=== PATIENT | male | born 1980 | race African-American/Black ===

== ENCOUNTER 2017-03-19 07:53 | Inpatient (IN) ==
[2017-03-19 08:29] LABS: MANUAL DIFF NEEDED? NO
[2017-03-19 08:33] LABS: BASO% 0.1 % (0.0-0.8); EOS# 0.04 X1000 (0.0-0.7); EOS% 0.4 % (0.0-10.0); HEMATOCRIT 42.5 % (42.0-52.0); HEMOGLOBIN 14.9 g/dL (14.0-18.0); IMM GRAN# 0.02 X1000 (0.0-0.04); IMM GRAN% 0.2 % (0.0-0.5); LYMPH# 1.22 X1000 (1.2-3.4); LYMPH% 13.3 % (20.5-51.1); MCHC 35.1 g/dL (33-37); MCV 88.5 FL (81-99); MONO# 0.69 X1000 (0.11-0.59); MONO% 7.5 % (1.7-9.3); MPV 10.5 FL (7.4-10.4); NEUT% 78.5 % (42.2-75.2); PLT 174 X1000 (130-400)
[2017-03-19 09:16] LABS: ALBUMIN 4.5 g/dL (3.5-5.0); CALCIUM 9.8 mg/dL (8.8-10.2); POTASSIUM 3.4 mmol/L (3.5-5.1); TOTAL BILIRUBIN 0.79 mg/dL (0.20-1.00); TOTAL PROTEIN 7.5 g/dL (6.3-8.3)
[2017-03-19 09:23] LABS: ALLEN TEST YES; BE 7.3 mmoll (-3.0-3.0); BLOOD TYPE ARTERIAL; DRAW SITE R RADIAL; METHB 0.9 % (0.0-1.5); O2(CT) 19.4 mL/dL (15.0-23.0); PCO2(98.6) 34 mmHg (35-45); PO2(98.6) 113 mmHg (60-100); SAMPLE BLOOD; SAO2 99.7 % (95.0-100.0); THB 15.2 g/dL (11.5-17.4); pH(98.6) 7.55 (7.35-7.45)
[2017-03-19 09:26] LABS: MODALITY ROOM AIR
[2017-03-19] MEDS ORDERED: ZOFRAN IV PRN (12:24)
[2017-03-19 12:39] LABS: AMYLASE 120 U/L (20-200); LIPASE 16 U/L (13-60)
[2017-03-19 14:03] LABS: URINE CULTURE NEEDED? NO; URINE MICRO REVIEW NEEDED? NO; URINE SOURCE CLEAN CATCH
[2017-03-19 14:07] LABS: BILIRUBIN URINE NEGATIVE (NEGATIVE); BLOOD URINE TRACE (NEGATIVE); COLOR YELLOW; GLUCOSE URINE NEGATIVE (NEGATIVE); LEUKOCYTES URINE NEGATIVE (NEGATIVE); NITRITE URINE NEGATIVE (NEGATIVE); PROTEIN URINE TRACE mg/dL (NEGATIVE); SP GRAVITY URINE 1.022; TURBIDITY URINE CLEAR (CLEAR); UROBILINOGEN URINE NORMAL (NORMAL)
[2017-03-19 14:11] LABS: UR EPITHELIAL CELLS <10 /HPF (<10); URINE BACTERIA NEGATIVE /HPF; URINE RBC <10 /HPF (<10); URINE WBC <10 /HPF (<10)
[2017-03-19] MEDS: NS 1,000 ML IV SCH ×2 (14:11→22:09)
[2017-03-19 14:19] LABS: UR AMPHETAMINES QUAL NONE DETECTED (NONE DETECT); UR BARBITUATES QUAL NONE DETECTED (NONE DETECT); UR BENZODIAZEPIN QUAL NONE DETECTED (NONE DETECT); UR CANNABINOIDS QUAL NONE DETECTED (NONE DETECT); UR COCAINE QUAL NONE DETECTED (NONE DETECT); UR CREAT RANDOM 188.8 mg/dL (14-26); UR METHADONE QUAL NONE DETECTED (NONE DETECT); UR OPIATES QUAL NONE DETECTED (NONE DETECT); UR OXYCODONE QUAL NONE DETECTED (NONE DETECT); UR PCP QUAL NONE DETECTED (NONE DETECT)
[2017-03-19 15:58] LABS: AGAP 10; ALBUMIN 4.5 g/dL (3.5-5.0); ALKALINE PHOSPHATASE 61 U/L (32-122); BUN 35 mg/dL (8-22); CHLORIDE 88 mmol/L (98-107); COSMO 273; GOT 23 U/L (10-34); GPT 16 U/L (10-44); POTASSIUM 3.4 mmol/L (3.5-5.1); SODIUM 131 mmol/L (136-145); TCO2 33 mmol/L (25-35); TOTAL BILIRUBIN 1.02 mg/dL (0.20-1.00); TOTAL PROTEIN 7.8 g/dL (6.3-8.3)
[2017-03-20 06:08] LABS: MANUAL DIFF NEEDED? NO
[2017-03-20 06:16] LABS: BASO% 0.2 % (0.0-0.8); EOS# 0.06 X1000 (0.0-0.7); EOS% 0.7 % (0.0-10.0); HEMATOCRIT 41.6 % (42.0-52.0); HEMOGLOBIN 14.1 g/dL (14.0-18.0); LYMPH# 2.63 X1000 (1.2-3.4); LYMPH% 32.2 % (20.5-51.1); MCH 30.7 PG (27-31); MCHC 33.9 g/dL (33-37); MCV 90.6 FL (81-99); MONO# 1.05 X1000 (0.11-0.59); MONO% 12.9 % (1.7-9.3); PLT 166 X1000 (130-400); RBC 4.59 XMIL (4.7-6.1)
[2017-03-20] MEDS: NS 1,000 ML IV SCH (07:17)
[2017-03-20 12:46] VITALS: BP 133/78
[2017-03-20] MEDS ORDERED: VENTOLIN HFA INH PRN (12:49)
[2017-03-21] MEDS ORDERED: PRILOSEC PO SCH (07:00)
== END 2017-03-20 14:31 | disposition home or self-care (01) ==
LOC: ED 07:53 → SUATTDRO 11:40 → 4N 11:40
PROVIDERS: ATTEND Internal Medicine

== ENCOUNTER 2018-07-28 06:30 | Inpatient (IN) ==
--- NOTE | 2018-07-28 07:46 | PROVIDER DOCUMENTATION ---
HPI-General Adult - General Chief Complaint: General Adult Stated Complaint: Headache and Chest pain Time Seen by Provider: 07/28/18 07:41 Source: patient Allergies/Adverse Reactions: Patient Allergies Allergy/AdvReac Type Severity Reaction Status Date / Time No Known Allergies Allergy Verified 12/13/17 20:29 Home Medications: Home Medication List Medication Instructions Recorded Confirmed Last Taken Type Lisinopril 5 mg PO QAM 12/17/15 12/13/17 12/12/17 History Metformin [Glucophage] 500 mg PO QAM 12/17/15 12/13/17 12/12/17 History SIMVAstatin [Zocor] 10 mg PO QHS 12/17/15 12/13/17 12/12/17 History Albuterol Sulfate Inhaler 2 puff INH Q6H PRN PRN #1 inhaler 03/20/17 12/13/17 Rx [Ventolin Hfa] Escitalopram Oxalate 1 tab PO DAILY 12/13/17 12/13/17 12/12/17 History Potassium Chloride E.r. [Klor-Con] 10 meq PO TID #30 tab 12/14/17 Unknown Rx Ondansetron Odt [Zofran 4 mg Odt] 4 mg PO Q6H PRN PRN 7 Days #20 tab 07/25/18 Unknown Rx - History of Present Illness -Gen Adult Nature of Presenting Problems: poor historian just sick wants food not eating 4 days complains of hunger and hx hbp lipids t2dm Location of Pain/Injury: reports: generalized Pain Radiation: reports: no radiation Quality of Pain: reports: aching Severity: reports: mild Onset/Duration: reports: unsure Timing: reports: still present Context/Activities at Onset: reports: none Modifying Factors: improves with: eating Associated Symptoms: reports: diarrhea, fatigue, muscle aches, nausea Similar Symptoms Previously?: No Recently seen or treated by another doctor?: No Review of Systems - Adult - REVIEW OF SYSTEMS - ADULT Constitutional: denies: night sweats, weight gain, weight loss Eyes: reports: no symptoms reported Ears, Nose, Mouth & Throat: reports: no symptoms reported Cardiovascular: reports: chest pain. denies: orthopnea, palpitations, syncope Respiratory: reports: cough. denies: hemoptysis, shortness of breath, wheezing Gastrointestinal: reports: diarrhea, nausea, vomiting Genitourinary: reports: no symptoms reported Musculoskeletal: reports: no symptoms reported Integumentary: reports: itching Neurological: reports: no symptoms reported Psychiatric: reports: depression Endocrine: reports: increased hunger, increased thirst. denies: polyuria Hematologic/Lymphatic: reports: no symptoms reported Allergic/Immunologic: reports: no symptoms reported Past History - Adult - PAST MEDICAL HISTORY-ADULT Review of Records: reports: Nursing Assessment Review, Medications Reviewed, Social history reviewed & non-contributory. Major Childhood Illnesses: reports: denies history Cardiovascular: reports: HTN, hyperlipidemia Respiratory: reports: asthma Gastrointestinal: reports: denies history Obstetrical/Gynecological: reports: denies history Genitourinary: reports: denies history Musculoskeletal: reports: denies history Neurological: reports: denies history Psychiatric: reports: anxiety Endocrine/Immune: reports: Diabetes Other Conditions: reports: denies history - PRIOR SURGERIES/PROCEDURES Surgical/Procedure History: reports: colonoscopy - IMMUNIZATION STATUS Childhood Immunizations: See Nurse Assessment Flu Vaccine: See Nurse Assessment - FAMILY HISTORY Family History: reviewed, not pertinent Physical Exam-General - PHYSICAL EXAM-ADULT Initial Vital Signs Reviewed: Yes - CONSTITUTIONAL General Appearance: alert, no apparent distress - EYES Eyes: PERRL/EOMI, pink conjunctivae - HEAD, EARS, NOSE, MOUTH & THROAT HENMT: normocephalic/atraumatic, moist mucous membranes, normal ENT inspection, TMs normal, pharynx normal - NECK Neck: non-tender, full range of motion, supple - RESPIRATORY Respiratory: chest non-tender, lungs clear, normal breath sounds - CARDIOVASCULAR Cardiovascular: normal peripheral pulses, regular rate, rhythm, no edema - GASTROINTESTINAL (ABDOMEN) Abdominal Exam: normal bowel sounds, non tender, soft - LYMPHATIC Lymphatic: no adenopathy - MUSCULOSKELETAL Back Exam: normal inspection Extremity: normal range of motion, non-tender, normal gait - SKIN Integumentary: normal color, normal turgor - NEUROLOGIC Neurologic: passport support associate II-XII nml as tested, grossly normal Progress - PLAN OF CARE/RESULTS Progress/Plan/Lab Results: Vital Signs - 8 hr 07/28/18 06:30 Temperature 97.7 F Pulse Rate 73 Respiratory Rate 12 Blood Pressure 100/68 O2 Sat by Pulse Oximetry 100 Orders Category Date Time Status CBC WITH DIFF [HEME] Stat Lab 07/28/18 07:14 Ordered CMP [COMPREHENSIVE METABOLIC PANEL] [CHEM] Stat Lab 07/28/18 07:14 Uncollected ua [URINALYSIS PL W/POSS RFLX CULT] [URINALYSIS] Stat Lab 07/28/18 07:15 Uncollected Result Diagrams: 07/28/18 09:50 07/28/18 09:50 Departure - Departure Date of Disposition Decision: 07/28/18 Time of Disposition Decision: 11:04 DIAGNOSIS: Hyponatremia, Hypokalemia, Azotemia Disposition: ADMITTED INPATIENT 09 Certified Medical Emergency: Emergent Condition: Stable - Critical Care Note This patient required my direct & personal management of CC.: No Attestation - Physician/ SOFIA Attestation Patient care was provided by Advanced Practice Provider:: No The physician spent face to face time with patient:: Yes Advanced Practice Provider documentation review:: Supervising physician onsite and consulted in the evaluation and care of this patient. The physician did have a face to face encounter with the patient.
[2018-07-28 08:18] LABS: BILIRUBIN URINE NEGATIVE (NEGATIVE); BLOOD URINE 2+ (NEGATIVE); CLARITY CLEAR (CLEAR); COLOR YELLOW; KETONE URINE TRACE mg/dL (NEGATIVE); LEUKOCYTES URINE NEGATIVE (NEGATIVE); NITRITE URINE NEGATIVE (NEGATIVE); PROTEIN URINE 1+(30 mg/dL) mg/dL (NEGATIVE); SP GRAVITY URINE 1.015; UROBILINOGEN URINE NORMAL
[2018-07-28 08:30] LABS: URINE CAST GRANULAR PRESENT /LPF
[2018-07-28 08:31] LABS: URINE BACTERIA 1+ /HFP; URINE EPITHELIAL CELLS <10 /HPF (<10); URINE RBC <10 /HPF (<10); URINE SMALL ROUND CELLS TRANSITIONAL PRESENT
[2018-07-28 08:32] LABS: URINE SOURCE CLEAN CATCH
[2018-07-28 08:40] LABS: UR AMPHETAMINES QUAL NONE DETECTED (NONE DETECT); UR BARBITUATES QUAL NONE DETECTED (NONE DETECT); UR BENZODIAZEPIN QUAL NONE DETECTED (NONE DETECT); UR CANNABINOIDS QUAL NONE DETECTED (NONE DETECT); UR COCAINE QUAL NONE DETECTED (NONE DETECT); UR METHADONE QUAL NONE DETECTED (NONE DETECT); UR METHAMPHETAMINE QUAL NONE DETECTED (NONE DETECT); UR OPIATES QUAL NONE DETECTED (NONE DETECT); UR OXYCODONE QUAL NONE DETECTED (NONE DETECT); UR PCP QUAL NONE DETECTED (NONE DETECT); UR PROPOXYPHENE QUAL NONE DETECTED (NONE DETECT); UR TCA QUAL NONE DETECTED (NONE DETECT)
[2018-07-28 10:05] LABS: BASO# 0.01 X1000 (0.0-0.2); BASO% 0.1 % (0.0-0.8); EOS# 0.05 X1000 (0.0-0.7); EOS% 0.4 % (0.0-10.0); HEMATOCRIT 43.4 % (42.0-52.0); HEMOGLOBIN 15.9 g/dL (14.0-18.0); IMM GRAN# 0.03 X1000 (0.0-0.04); IMM GRAN% 0.2 % (0.0-0.5); LYMPH# 0.99 X1000 (1.2-3.4); LYMPH% 8.1 % (20.5-51.1); MCH 30.7 PG (27-31); MCHC 36.6 g/dL (33-37); MCV 83.8 FL (81-99); NEUT# 9.39 X1000 (1.4-6.5); NEUT% 77.2 % (42.2-75.2); PLT 221 X1000 (130-400); RBC 5.18 XMIL (4.7-6.1); RDW 11.7 % (11.5-14.5); WBC 12.17 X1000 (4.8-10.8)
[2018-07-28 10:36] LABS: ALBUMIN 3.8 g/dL (3.5-5.0); CALCIUM 9.7 mg/dL (8.8-10.2); CREATININE 4.2 mg/dL (0.7-1.2); TOTAL BILIRUBIN 1.9 mg/dL (0.20-1.00); TOTAL PROTEIN 6.9 g/dL (6.3-8.3)
[2018-07-28 10:53] LABS: POTASSIUM 2.5 mmol/L (3.5-5.1)
--- NOTE | 2018-07-28 10:55 | Diag Imaging Result Doc PS360 ---
EXAM: CHEST-2 VIEWS - 07/28/2018 HISTORY: cough TECHNIQUE: Chest two views COMPARISON: 03/19/2017 FINDINGS: Heart size is normal. Lungs appear essentially clear. There is no pleural effusion or pneumothorax identified. There is possibly a small amount of pneumomediastinum superiorly to the left. There is possibly some subcutaneous air at the base of the left neck. IMPRESSION: No evidence of pneumonia. Possible small amount of pneumomediastinum superiorly to the left. Possible subcutaneous air at base of neck on the left. No evidence of pneumothorax. Electronically signed by Ron Choe 07/28/2018 10:53 AM
[2018-07-28] MEDS ORDERED: ZOFRAN IV PRN (11:28)
[2018-07-28 11:30] LABS: CK INDEX 0.4 (0.0-2.5); CK-MB 12.34 ng/mL (0.0-5.0)
[2018-07-28] MEDS ORDERED: NS 1,000 ML IV SCH (11:30)
[2018-07-28] MEDS ORDERED: KLOR-CON PO ONE ×2 (11:33→16:56)
[2018-07-28] MEDS: PROTONIX IV SCH (12:02)
[2018-07-28] MEDS: SODIUM CHLORIDE 0.9% INJ SCH (12:02)
[2018-07-28] MEDS: HEPARIN SUBQ SCH ×2 (12:14→23:30)
--- NOTE | 2018-07-28 12:32 | ED EKG INTERP ---
This chart was entered by Lorene Mcgowan Scribe, acting as scribe for Reinaldo Guy MD. EKG Interpretation - EKG Time of EKG reading by physician:: 11:24 EKG Read and Signed by:: Reinaldo Guy EKG Interpretation (*Must complete 3 of following elements*): Abnormal Rate: 67 Rhythm: nsr [place]: right QRS: other (right atrial enlargement/pulmonary disease pattern) MI Interval: normal Comments: st and t wave abnormality, consider lateral ischemia/prolonged qt Attestation - Physician/ SOFIA Attestation Patient care was provided by Advanced Practice Provider:: No The physician spent face to face time with patient:: Yes Advanced Practice Provider documentation review:: Supervising physician onsite and consulted in the evaluation and care of this patient. The physician did have a face to face encounter with the patient. This chart was documented by the indicated scribe, (Lorene Mcgowan Scribe) and accurately reflects the services I performed and decisions made by me, Reinaldo Guy MD, as attested by the provider's signature.
[2018-07-28 12:38] LABS: CALCIUM 9.4 mg/dL (8.8-10.2); CREATININE 4.3 mg/dL (0.7-1.2); POTASSIUM 2.4 mmol/L (3.5-5.1)
--- NOTE | 2018-07-28 14:36 | HISTORY AND PHYSICAL ---
PRIMARY CARE PHYSICIAN: Dr. Stapleton. CHIEF COMPLAINT: " just sick. HISTORY OF PRESENTING ILLNESS: This is a 38-year-old male, who presents to [facility] ER, and is a very poor historian and stated that he was" just sick." Apparently for the past several days, has been lying around, not eating, had nausea, vomiting, but is now complaining of hunger and wants to eat but his workup that revealed a white blood cell count of 12.17. Sodium of 116, potassium 2.5, chloride 59, BUN of 73 with a creatinine of 4.2. In reviewing his previous creatinine, he has had a 4.4 in December of last year that only improved to 2.9 per our records, so it is unclear if he may have some underlying chronic kidney disease, but this is certainly an acute episode at this time. Total bilirubin of 1.90, AST of 101, ALT 57, creatine kinase of 2903, CK-MB of 12.37, with a negative troponin of 0.027. Urinalysis was negative except for 1+ bacteria. Urine drug screen showed none detected. Chest x- ray showed no evidence of pneumonia. So, he is going to be admitted to the intensive care unit for further evaluation and treatment. PAST MEDICAL HISTORY: Of hypertension hyperlipidemia and diabetes type 2. PAST SURGICAL HISTORY: None. FAMILY HISTORY: Both parents have high blood pressure and diabetes. SOCIAL HISTORY: Currently lives with his dad and is a 1 pack a day smoker and has been since he was 13 years old. Denies any alcohol or illicit drug use. ALLERGIES: He has no known drug allergies. HOME MEDICATIONS: We will need to obtain a current list and restart as appropriate. I will place an order for nursing to update and confirm home medications. LABORATORY/X-RAY DATA: Showed a white blood cell count of 12.17, hemoglobin 15.9, hematocrit 43.4, platelets 221,000. Sodium 116, potassium 2.5, chloride 59, CO2 44, BUN of 73, creatinine 4.2, glucose 115, total bilirubin of 1.90, AST of 101, ALT of 57 creatine kinase of 2903 with CK- MB of 12.34. Troponin was negative at 0.027. Urinalysis was negative, except for 1+ bacteria. Urine drug screen was negative. Chest x-ray showed no evidence of pneumonia. REVIEW OF SYSTEMS: Difficult to obtain from patient. The only thing I could get was nausea, vomiting, and fatigue. PHYSICAL EXAMINATION: On arrival he had a temperature of 97.7 degrees, pulse 73, respirations 12, blood pressure 100/68 saturating 100% on room air. GENERAL: This is a 38-year-old male, who is sitting up in the bed, answers questions, but not appropriately rambles quite frequently during the conversation and passed to be redirected back to the question and then still does not answer it clearly. HENT: Normocephalic, atraumatic. Normal ENT inspection. Oropharynx and nares are clear. EYES: Pupils are equal, round, reactive to light and accommodation. Extraocular movements are intact. NECK: Normal inspection, normal range of motion. LUNGS: Clear to auscultation bilaterally with equal lung expansion and chest wall movement. HEART: With regular rate and rhythm. No murmurs, rubs, or gallops. ABDOMEN: Soft, nontender, nondistended. Bowel sounds are present x4 quadrants. MUSCULOSKELETAL: He has 5/5 strength x4 extremities. NEUROLOGICAL: The cranial nerves 2-12 appear grossly intact. ASSESSMENT: 1. Hyponatremia. 2. Hypokalemia. 3. Acute kidney injury, possibly in the presence of chronic, but unknown at this time. 4. Rhabdomyolysis. 5. Elevated liver function tests. 6. Tobacco abuse. PLAN: He will be admitted to intensive care, placed on pattern blood sugars. Telemetry. Full liquid diet. We are going to check a urine sodium, urine osmolality, cortisols, TSH level and UA with reflex culture. We will do serial BMPs q. 2 hours. We will check a chest x-ray portable in the a.m. Place him on heparin 5000 units subcutaneously q. 12 hours for DVT prophylaxis. Place him on normal saline with 40 of potassium at 125 mL an hour, Protonix 40 mg IV 24. He received a 40 mEq p.o. x1 in the emergency room, and we will also recheck cardiac enzymes in the a.m. We will again update and confirm home medications per nursing and restart those as appropriate. This is for Reinaldo Morejon this is can be Vanesa COTA dictating for doctor status thank you. Dictated by BEATA Abad for Kyle Calabrese MD cc: BEATA Abad MD
[2018-07-28 14:42] LABS: CREATININE 4.2 mg/dL (0.7-1.2); POTASSIUM 3.1 mmol/L (3.5-5.1)
--- NOTE | 2018-07-28 14:43 | EKG Report ---
Test Performed on : 07/28/2018 11:24:05 AM Test Reason : pain Blood Pressure : / mmHG Vent. Rate : 067 BPM Atrial Rate : 067 BPM P-R Int : 152 ms QRS Dur : 100 ms QT Int : 522 ms P-R-T Axes : 081 098 091 degrees QTc Int : 551 ms Normal sinus rhythm. Right atrial enlargement Rightward axis Pulmonary disease pattern ST & T wave abnormality, consider lateral ischemia Prolonged QT Abnormal ECG No previous ECGs available Unconfirmed Result
[2018-07-28 15:10] LABS: BILIRUBIN URINE NEGATIVE (NEGATIVE); BLOOD URINE 1+ (NEGATIVE); CLARITY CLEAR (CLEAR); COLOR YELLOW; KETONE URINE NEGATIVE (NEGATIVE); SP GRAVITY URINE 1.015; URINE SOURCE CLEAN CATCH
[2018-07-28 15:11] LABS: LEUKOCYTES URINE NEGATIVE (NEGATIVE); NITRITE URINE NEGATIVE (NEGATIVE); PROTEIN URINE TRACE mg/dL (NEGATIVE); UROBILINOGEN URINE NORMAL
[2018-07-28 15:15] LABS: URINE WBC <10 /HPF (<10)
[2018-07-28 15:16] LABS: URINE EPITHELIAL CELLS <10 /HPF (<10); URINE RBC <10 /HPF (<10)
[2018-07-28 15:17] LABS: URINE BACTERIA 1+ /HFP; URINE YEAST NONE SEEN /HPF
[2018-07-28 16:55] LABS: CREATININE 3.8 mg/dL (0.7-1.2); POTASSIUM 2.8 mmol/L (3.5-5.1)
[2018-07-28 18:56] LABS: CALCIUM 9.1 mg/dL (8.8-10.2); CREATININE 3.6 mg/dL (0.7-1.2); POTASSIUM 3.3 mmol/L (3.5-5.1)
[2018-07-28] MEDS: NS + KCL 40 MEQ 1,000 ML IV SCH ×2 (19:43→19:48)
[2018-07-28] MEDS ORDERED: KLOR-CON ONE (19:46)
[2018-07-28] MEDS: HUMULIN R DOSE (PARKWAY) SUBQ SCH ×2 (19:46→23:26)
[2018-07-28 21:04] LABS: CALCIUM 8.7 mg/dL (8.8-10.2); CREATININE 3.6 mg/dL (0.7-1.2)
[2018-07-28 22:06] LABS: CALCIUM 8.9 mg/dL (8.8-10.2); CREATININE 3.3 mg/dL (0.7-1.2)
[2018-07-29 02:33] LABS: CALCIUM 9.1 mg/dL (8.8-10.2); CREATININE 3.1 mg/dL (0.7-1.2); POTASSIUM 3.5 mmol/L (3.5-5.1)
[2018-07-29 02:41] LABS: CALCIUM 8.9 mg/dL (8.8-10.2); CREATININE 2.9 mg/dL (0.7-1.2); POTASSIUM 3.6 mmol/L (3.5-5.1)
[2018-07-29] MEDS: NS + KCL 40 MEQ 1,000 ML IV SCH ×2 (03:50→11:54)
--- NOTE | 2018-07-29 04:29 | HISTORY AND PHYSICAL ---
ADDENDUM: The patient seen and examined by me [id number]. All the laboratories, vital signs and images was reviewed. The patient presented to the emergency department with severe weakness, also he was somehow disoriented, but he was answering some of my questions properly but he was really slow. He has severe weakness. As per the patient he was just sick. I do believe this patient has not been eating or drinking for a few days ago, but he does not remember that. His initial lab work showed a blood sodium of 116, and potassium level of 2.5. Also this patient is hypochloremic, he has some chronic kidney disease and yessy looks like his kidney function is around baseline, probably an acute on chronic kidney problem. CK level was elevated at 2803, and troponin was negative. He is not complaining of chest pain or shortness of breath. His urine osmolality was around 311, and his sodium level was less than 10 with some granular cast in the urine. On physical examination this patient was severely dehydrated. I have placed this patient on normal saline with potassium. The blood sodium had initially dropped to 113 and then it started going up again to 116, and now is 118, it is going up slowly. We will continue with the same management. The case has been discussed with the Nephrology Department, and a consult has been placed. They agree with the treatment. We will monitor this patient closely. I will also continue monitoring the CKD level on a daily basis, TSH, cortisol and hemoglobin A1c. At this moment this patient is alert and oriented x3 and he looks better. We will continue with the same management. cc: Kyle Calabrese MD
[2018-07-29 05:12] LABS: BASO# 0.01 X1000 (0.0-0.2); BASO% 0.2 % (0.0-0.8); EOS% 1.5 % (0.0-10.0); HEMATOCRIT 39.9 % (42.0-52.0); HEMOGLOBIN 14.1 g/dL (14.0-18.0); IMM GRAN# 0.02 X1000 (0.0-0.04); IMM GRAN% 0.3 % (0.0-0.5); LYMPH# 1.59 X1000 (1.2-3.4); LYMPH% 23.9 % (20.5-51.1); MCH 30.6 PG (27-31); MCHC 35.3 g/dL (33-37); MCV 86.6 FL (81-99); MONO# 1.13 X1000 (0.11-0.59); MPV 9.8 FL (7.4-10.4); NEUT# 3.79 X1000 (1.4-6.5); NEUT% 57.1 % (42.2-75.2); PLT 191 X1000 (130-400); RBC 4.61 XMIL (4.7-6.1); RDW 12.3 % (11.5-14.5); WBC 6.64 X1000 (4.8-10.8)
[2018-07-29 05:32] LABS: CALCIUM 8.9 mg/dL (8.8-10.2); CREATININE 2.7 mg/dL (0.7-1.2); POTASSIUM 3.6 mmol/L (3.5-5.1)
[2018-07-29 05:36] LABS: HEMOGLOBIN A1C 5.8 % (4.8-6.0)
[2018-07-29 05:54] LABS: CK INDEX 0.5 (0.0-2.5); CK-MB 5.91 ng/mL (0.0-5.0)
[2018-07-29] MEDS: HUMULIN R DOSE (PARKWAY) SUBQ SCH (06:53)
--- NOTE | 2018-07-29 08:05 | Diag Imaging Result Doc PS360 ---
EXAM: CHEST-PORTABLE INDICATION: SOB TECHNIQUE: One view COMPARISON: 07/28/2018 FINDINGS: The lungs are grossly clear. There is no discrete pleural fluid collection or pneumothorax. The cardiomediastinal silhouette and central vasculature are grossly unremarkable. IMPRESSION: No evidence of acute pathology by plain radiograph. Electronically signed by Zain Tee 07/29/2018 8:03 AM
[2018-07-29 08:19] LABS: CALCIUM 9.1 mg/dL (8.8-10.2); CREATININE 2.6 mg/dL (0.7-1.2); POTASSIUM 3.9 mmol/L (3.5-5.1)
[2018-07-29 08:27] LABS: CALCIUM 8.9 mg/dL (8.8-10.2); CREATININE 2.6 mg/dL (0.7-1.2); POTASSIUM 3.7 mmol/L (3.5-5.1)
[2018-07-29] MEDS: SODIUM CHLORIDE 0.9% INJ SCH (11:54)
[2018-07-29] MEDS: PROTONIX IV SCH (11:54)
[2018-07-29] MEDS: HEPARIN SUBQ SCH (11:55)
--- NOTE | 2018-07-29 14:45 | PROGRESS NOTE ---
DATE: 07/29/2018 SUBJECTIVE: The patient denies having any acute complaints this morning. He feels much better. OBJECTIVE: Vital signs: Temperature 98.3 degrees, pulse 70 per minute, respiratory rate 25 per minute, blood pressure 124/69, pulse ox 98% on room air. General: The patient is alert and oriented. He does not appear to be in any acute distress. Cardiovascular: First and second heart sounds are audible without any murmurs or gallops. Respiratory: No respiratory distress noted. Bilateral lung air entry is good without rales or rhonchi. GI: Abdomen is soft and nondistended. It is nontender on palpation. Normal bowel sounds are present. Musculoskeletal: No deformities are present. DIAGNOSTIC DATA: CBC is nondiagnostic. White blood cell count has improved from 12.17 to 6.64. Chemistry also showed improvement of his sodium level to 131. His BUN and creatinine are elevated at 51 and 2.6 respectively. His creatinine has improved from 4.2 to 2.6, however. Also, CPK has improved from 2,903 to 1,230. IMPRESSION: Rhabdomyolysis with acute kidney injury and hyponatremia plus hypokalemia. PLAN: The patient will be continued on IV fluids since he is getting better. His creatinine levels have significantly improved, and his total CPK has also come down. Furthermore, his hyponatremia and hypokalemia have improved as well. On admission, his potassium was 2.5, and now it has improved to 3.9. Since the patient's condition has improved, we are going to transfer him to the regular med/surg floor but will keep him on telemetry. I am going to discontinue IV pantoprazole and switch him to oral omeprazole 40 mg daily and also restart him on his routine Lexapro 20 mg daily. I am going to keep holding his simvastatin and lisinopril along with metformin however. We will keep him in the hospital on IV fluids so that his rhabdomyolysis and acute kidney injury both improve further. cc: Yossi Alvarez MD
--- NOTE | 2018-07-29 17:29 | NEPHROLOGY CONSULTATION ---
DATE: 07/29/2018 REASON FOR CONSULTATION: Acute kidney injury and hyponatremia. HISTORY OF PRESENT ILLNESS: Mr. Morejon is a [id number]--[place] man that I have not met before. He had several days of intense nausea, vomiting, and diarrhea. No home intervention was successful in improving his symptoms, and so he ultimately came to the hospital where he was assessed and subsequently admitted. His initial evaluation found him marginally hypotensive and marginally tachycardic. His initial laboratory data found creatinine of 4.2, BUN 73 and a sodium of 116. I discussed the case by phone with Dr. Aleman last evening, and having reviewed the data, we decided to treat with normal saline for aggressive volume resuscitation. Using this modality, he had progressive improvement in his hyponatremia such that his sodium adam from 116 at 0950 on yesterday to 131 today. Also, his creatinine has fallen progressively from 4.2 to 2.6. His baseline is somewhat uncertain. The last creatinine in the system prior to this admission was 2.9 on December 14, 2017. PAST MEDICAL HISTORY: Hypertension, hyperlipidemia, and diabetes. HOME MEDICATIONS: Include metformin, simvastatin, escitalopram, lisinopril. ALLERGIES: NONE. SOCIAL HISTORY/FAMILY HISTORY/REVIEW OF SYSTEMS: Otherwise noncontributory. PHYSICAL EXAMINATION: Vital signs: Blood pressure 98/51, heart rate 74, respiratory rate 23, and afebrile. General: No acute distress. Skin: Warm and dry. HEENT: Conjunctivae are pink. Pupils are equal. Oropharynx is clear. Tongue is normal. Dentition normal. Neck: Neck veins are nondistended. Supple with no JVD. Heart: Regular with S4 gallop. PMI nondisplaced. Lungs: Equal breath sounds. No crackles or wheezes. Abdomen: Soft and nontender. Bowel sounds are present. Extremities: No edema, clubbing or cyanosis. IMPRESSION: 1. Acute kidney injury overlying chronic kidney disease. Improving with volume resuscitation. His Prakash inhibitor has been appropriately withheld for now. 2. Electrolyte abnormality. Continue normal saline as you are doing. Potassium supplementation as well. Progressive improvement. His sodium and potassium are no longer of concern. cc: Pancho Byrd MD
[2018-07-29] MEDS: HUMULIN R (PARKWAY) SUBQ SCH ×2 (18:47→21:25)
[2018-07-29] MEDS ORDERED: LEXAPRO PO SCH (21:00)
[2018-07-30] MEDS: HEPARIN SUBQ SCH ×2 (01:10→11:46)
[2018-07-30] MEDS: NS + KCL 40 MEQ 1,000 ML IV SCH ×2 (01:10→08:31)
[2018-07-30] MEDS: HUMULIN R (PARKWAY) SUBQ SCH ×2 (06:25→11:46)
[2018-07-30] MEDS ORDERED: PRILOSEC PO SCH (07:00)
[2018-07-30 07:45] LABS: BASO# 0.01 X1000 (0.0-0.2); BASO% 0.2 % (0.0-0.8); EOS# 0.19 X1000 (0.0-0.7); EOS% 2.9 % (0.0-10.0); HEMATOCRIT 35.3 % (42.0-52.0); HEMOGLOBIN 11.5 g/dL (14.0-18.0); IMM GRAN# 0.01 X1000 (0.0-0.04); IMM GRAN% 0.2 % (0.0-0.5); LYMPH# 1.91 X1000 (1.2-3.4); LYMPH% 29.4 % (20.5-51.1); MCH 29.6 PG (27-31); MCHC 32.6 g/dL (33-37); MONO# 0.88 X1000 (0.11-0.59); MONO% 13.5 % (1.7-9.3); MPV 9.9 FL (7.4-10.4); NEUT% 53.8 % (42.2-75.2); PLT 184 X1000 (130-400); RBC 3.88 XMIL (4.7-6.1); RDW 12.9 % (11.5-14.5)
[2018-07-30 08:09] LABS: ALBUMIN 3.4 g/dL (3.5-5.0); CALCIUM 8.7 mg/dL (8.8-10.2); CREATININE 1.8 mg/dL (0.7-1.2); MAGNESIUM 1.4 mg/dL (1.5-2.7); POTASSIUM 4.8 mmol/L (3.5-5.1); TOTAL BILIRUBIN 0.7 mg/dL (0.20-1.00); TOTAL PROTEIN 5.2 g/dL (6.3-8.3)
--- NOTE | 2018-07-30 11:54 | DISCHARGE SUMMARY ---
ADMISSION DATE: 07/28/2018 DISCHARGE DATE: ADDENDUM: Creatinine has come down to 1.8. It was 3.3 on admission. Sodium still low at 132, but it is up from 123, potassium is at 4.8. Magnesium is still a little bit low at 1.4, so we will give him a dose of that. Overall, he has improved, however, we are going to have to hold his Prakash, statin and metformin because his kidney function is not appropriate for those medications at this time. I am going to switch him to Januvia 50. This may not be long-term and unfortunately since he has some degree of rhabdomyolysis, we really cannot keep him on the statin either. His PCP is Dr. Stapleton I believe, so he is really going to have to look over his medications. Right now I am just discharging him on Januvia 50 and keeping him on his Lexapro 20. The patient is stable for discharge. He will need followup renal panel in 1 week and stay well hydrated and will go from go from there. This is a [id number] encounter note with BEATA Abad. cc: MD Antonio Tolentino Jr, MD
[2018-07-30 11:58] VITALS: BP 104/59
[2018-07-30] MEDS ORDERED: MAGNESIUM SULFATE 2 GM/S.W.I. 2 GM/50 ML IVPB IV ONE (12:00)
--- NOTE | 2018-07-30 22:25 | DISCHARGE SUMMARY ---
ADMISSION DATE: 07/28/2018 DISCHARGE DATE: 07/30/2018 PRIMARY CARE PHYSICIAN: Dr. Stapleton. ADMISSION DIAGNOSES: 1. Hyponatremia. 2. Hypokalemia. 3. Acute kidney injury, possibly in the presence of chronic, but unknown at time of admission. 4. Rhabdomyolysis. 5. Elevated liver function tests. 6. Tobacco abuse. DISCHARGE DIAGNOSES: 1. Hyponatremia, improved. 2. Hypokalemia, resolved. 3. Acute kidney injury, improved. Creatinine at 1.8 now. 4. Rhabdomyolysis, resolved. 5. Elevated liver function tests, resolved. 6. Tobacco abuse. SUMMARY OF FINDINGS: This is a 38-year-old male who presented to the ER as a poor historian, stating "I'm just sick." He had been lying around the house and not eating and had nausea and vomiting for the last couple of days, now stating he was hungry and wanted to eat, but his workup revealed a white blood cell count of 12.17, sodium 116, potassium 2.5, chloride 59. BUN was 73 with a creatinine of 4.2. In reviewing his previous creatinines, he had had a 4.4 in December of last year that only improved to 2.9 on our records. It was unclear how much underlying chronic kidney disease he had, so we treated it as an acute episode at this time. His creatine kinase was 2903 with a CK-MB of 12.7 but a negative troponin at 0.027. He was admitted initially to the intensive care unit, placed on telemetry, and we did a urine sodium, urine osmolality, and cortisol levels. BMPs were done q.2 hours. He was placed on heparin 5000 units subcutaneously q.12 for DVT prophylaxis, placed on normal saline with 40 of potassium at 125/h, Protonix 40 IV q.24. He did receive 40 mEq of potassium in the ER. We did consult Nephrology that felt he was improving with volume resuscitation and agreed with holding his ISABEL inhibitor. He has improved. Today, his sodium is up to 132, creatinine is down to 1.8, creatine kinase down to 563, so it is felt that he can safely be discharged home today. DISCHARGE MEDICATIONS: Continue his citalopram 20 mg p.o. at bedtime. Prescription for Januvia 50 mg p.o. daily. We will continue to hold his ISABEL inhibitor and metformin until he is seen by his primary care physician. He will need to follow up with Dr. Stapleton next week and call the office for an appointment. TIME SPENT: A 35-minute discharge. Dictated by BEATA Abad for Fredy Hanson MD cc: BEATA Abad MD Joel Alonzo Powell, Jr, MD
== END 2018-07-30 14:33 | disposition home or self-care (01) | DRG 683 ==
LOC: P.ED 06:30 → P.ICU 12:14 → SUATTDRO 12:14 → P.MEDSURG 07-29 15:41
PROVIDERS: ATTEND Internal Medicine
CPT/HCPCS: 71010; 71020; 71045; 71046; 80048; 80053; 80104; 80301; 80305; 81001; 82533; 82550; 82553; 82948; 83036; 83735; 83935; 84300; 84443; 84484; 85025; 93005; 96372; 96374; 99283; 99285; A9270; C9113; G0431; G0434; G0477; J1644; J2550; J3475; J7030; S0164; XXXXX

== ENCOUNTER 2018-08-24 17:04 | Observation (INO) ==
[2018-08-24] MEDS ORDERED: NS 1,000 ML IV ONE ×3 (17:52→23:04)
[2018-08-24 18:08] LABS: BASO# 0.05 X1000 (0.0-0.2); BASO% 0.6 % (0.0-0.8); EOS# 0.02 X1000 (0.0-0.7); EOS% 0.2 % (0.0-10.0); HEMATOCRIT 42.4 % (42.0-52.0); HEMOGLOBIN 14.6 g/dL (14.0-18.0); IMM GRAN# 0.03 X1000 (0.0-0.04); IMM GRAN% 0.4 % (0.0-0.5); LYMPH# 1.26 X1000 (1.2-3.4); LYMPH% 15.1 % (20.5-51.1); MCH 29.9 PG (27-31); MCHC 34.4 g/dL (33-37); MCV 86.7 FL (81-99); MONO# 0.76 X1000 (0.11-0.59); MONO% 9.1 % (1.7-9.3); MPV 9.2 FL (7.4-10.4); NEUT# 6.21 X1000 (1.4-6.5); NEUT% 74.6 % (42.2-75.2); PLT 404 X1000 (130-400); RBC 4.89 XMIL (4.7-6.1); RDW 13.1 % (11.5-14.5); WBC 8.33 X1000 (4.8-10.8)
[2018-08-24 18:25] LABS: URINE SOURCE CLEAN CATCH
[2018-08-24 18:33] LABS: BILIRUBIN URINE NEGATIVE (NEGATIVE); BLOOD URINE 1+ (NEGATIVE); CLARITY CLEAR (CLEAR); COLOR YELLOW; GLUCOSE URINE NEGATIVE (NEGATIVE); KETONE URINE 1+(Small) mg/dL (NEGATIVE); LEUKOCYTES URINE TRACE (NEGATIVE); NITRITE URINE NEGATIVE (NEGATIVE); PH URINE 6.5; PROTEIN URINE 2+(100 mg/dL) mg/dL (NEGATIVE); UROBILINOGEN URINE 4 mg/dL
[2018-08-24 18:34] LABS: ALBUMIN 4.7 g/dL (3.5-5.0); CALCIUM 10.5 mg/dL (8.8-10.2); CREATININE 2.6 mg/dL (0.7-1.2); POTASSIUM 3.4 mmol/L (3.5-5.1); TOTAL BILIRUBIN 1.3 mg/dL (0.20-1.00); TOTAL PROTEIN 8.7 g/dL (6.3-8.3)
[2018-08-24 18:44] LABS: UR AMPHETAMINES QUAL NONE DETECTED (NONE DETECT); UR BARBITUATES QUAL NONE DETECTED (NONE DETECT); UR BENZODIAZEPIN QUAL NONE DETECTED (NONE DETECT); UR CANNABINOIDS QUAL NONE DETECTED (NONE DETECT); UR COCAINE QUAL NONE DETECTED (NONE DETECT); UR METHADONE QUAL NONE DETECTED (NONE DETECT); UR METHAMPHETAMINE QUAL NONE DETECTED (NONE DETECT); UR OPIATES QUAL NONE DETECTED (NONE DETECT); UR OXYCODONE QUAL NONE DETECTED (NONE DETECT); UR PCP QUAL NONE DETECTED (NONE DETECT); UR PROPOXYPHENE QUAL NONE DETECTED (NONE DETECT); UR TCA QUAL NONE DETECTED (NONE DETECT)
--- NOTE | 2018-08-24 19:09 | PROVIDER DOCUMENTATION ---
This chart was entered by Lorene Mcgowan Scribe, acting as scribe for Guanaco Santana MD. HPI-Abdominal Pain/GI Problem - General Source: patient, EMS (first response) - History of Present Illness-ABD Nature of Presenting Problems: 38 yobm presents to the ed with c/o abdominal pain with n/v. pt was in the er yesterday for same complaint. pt sts vomited 40x today pt had CT done yesterday ordered by dr ramírez: CT ABDOMEN/PELVIS W/O CONTRAST - 08/23/2018 INDICATION: abdominal pain, vomiting COMPARISON: None FINDINGS: There is a nodular density in the right middle lobe measuring about 1 cm. No infiltrates in the lung bases. No radiodense renal stones. No hydronephrosis or hydroureter. No visible bowel obstruction or inflammation. There is a candidate normal appendix at the right side of the pelvis. Urinary bladder, prostate, and rectum are normal. No mass or fluid collection. Bones are intact. IMPRESSION: 1. Small right middle lobe pulmonary nodule. 2. No acute process. This exam was performed using automated exposure control, adjustment of mA or kV according to patient size, and/or use of iterative reconstruction technique Electronically signed by Antonio Ca 08/23/2018 9:28 AM 08/23/18927 Interpreting Physician: Antonio Ca MD Dictated Date/Time: 08/23/18926 cc: Emilia Ramírez MD; None,PCP Abdominal Pain Onset Location: reports: generalized abdomen Pain Radiation: reports: no radiation Quality of Pain: reports: aching, cramping Severity in ED: reports: moderate Onset/Duration: reports: other (2 weeks) Timing: reports: still present, intermittent Activities at Onset: reports: light activity Exposure to sick contacts?: Yes Modifying Factors: improves with: nothing Associated Symptoms: reports: anxiety, nausea, vomiting. denies: back/neck pain , chest pain, cough, diarrhea, fever/chills, headaches, heartburn, muscle aches , shortness of breath Last BM: 3 days ago Dark Stools Present?: reports: none noticed Rectal Bleeding: reports: none # of Diarrhea Episodes: 0 Rectal Pain: reports: none # of Vomiting Episodes: 40 Emesis Description: reports: other (did not describe and no vomit was seen in ems emesis bag that pt was holding over his mouth. no vomiting in ed seen) Bruising or Bleeding Gums?: No Similar Symptoms Previously?: Yes Recently seen or treated by another doctor?: Yes (saw dr Ramírez yesterday) <Guanaco Santana - Last Filed: 08/24/18 19:09> <Yobany Cedillo - Last Filed: 08/24/18 21:51> - General Chief Complaint: General Adult Stated Complaint: abdominal pain Time Seen by Provider: 08/24/18 17:16 Allergies/Adverse Reactions: Patient Allergies Allergy/AdvReac Type Severity Reaction Status Date / Time No Known Allergies Allergy Verified 08/24/18 19:33 Home Medications: Home Medication List Medication Instructions Recorded Confirmed Last Taken Type Escitalopram Oxalate 20 mg PO HS 12/13/17 08/24/18 08/18/18 History Benzonatate [Tessalon Perle] 100 mg PO TID #30 cap 08/15/18 08/24/18 08/18/18 Rx Ondansetron [Zofran] 4 mg PO Q6H PRN PRN #20 tab 08/15/18 08/24/18 08/18/18 Rx Lisinopril 10 mg PO QAM 08/19/18 08/24/18 08/18/18 History Metformin HCl [Metformin HCl ER] 500 mg PO QHS 08/19/18 08/24/18 08/18/18 History Potassium Chloride E.r. [Klor-Con] 10 meq PO DAILY 08/19/18 08/24/18 08/18/18 History Simvastatin [Zocor] 5 mg PO QHS 08/19/18 08/24/18 08/18/18 History Review of Systems - Adult - REVIEW OF SYSTEMS - ADULT Constitutional: denies: chills, fever Eyes: reports: no symptoms reported Ears, Nose, Mouth & Throat: reports: no symptoms reported Cardiovascular: denies: chest pain, palpitations Respiratory: denies: cough, shortness of breath, wheezing Gastrointestinal: reports: see HPI, abdominal pain, constipation (lastb bm 3 days prior), nausea, poor appetite, vomiting. denies: diarrhea Genitourinary: reports: no symptoms reported Musculoskeletal: denies: back pain, neck pain Integumentary: reports: no symptoms reported Neurological: denies: dizziness/vertigo, headache/migraines Psychiatric: reports: see HPI, anxiety Endocrine: reports: no symptoms reported Hematologic/Lymphatic: reports: no symptoms reported Allergic/Immunologic: reports: no symptoms reported All Other Systems: Reviewed and Negative <Guanaco Santana - Last Filed: 08/24/18 19:09> Past History - Adult - PAST MEDICAL HISTORY-ADULT Review of Records: reports: Old Records Reviewed, Nursing Assessment Review, Medications Reviewed, Social history reviewed & non-contributory. Major Childhood Illnesses: reports: denies history Cardiovascular: reports: HTN, hyperlipidemia Respiratory: reports: asthma, bronchitis, other (nodule in lung) Gastrointestinal: reports: GERD Genitourinary: reports: kidney disease Musculoskeletal: reports: denies history Neurological: reports: denies history Psychiatric: reports: anxiety Endocrine/Immune: reports: Diabetes Diabetes Type: Type 2 Other Conditions: reports: denies history - PRIOR SURGERIES/PROCEDURES Surgical/Procedure History: reports: colonoscopy - IMMUNIZATION STATUS Childhood Immunizations: See Nurse Assessment Flu Vaccine: See Nurse Assessment - FAMILY HISTORY Family History: reviewed, not pertinent - SOCIAL HISTORY Smoking: cigarettes, less than 1 pack/day Provider spent 3-5 mins advising pt. on dangers of tobacco.: Discussed manners to quit use, and f/u contacts for add'l counseling. Substance Use: denies Alcohol Use Frequency: never Living Situation: family <Guanaco Santana - Last Filed: 08/24/18 19:09> Physical Exam-General - PHYSICAL EXAM-ADULT Initial Vital Signs Reviewed: Yes - CONSTITUTIONAL General Appearance: alert, mild distress, thin - EYES Eyes: PERRL/EOMI, pale conjunctivae - HEAD, EARS, NOSE, MOUTH & THROAT HENMT: dental decay. negative: moist mucous membranes (dry) - NECK Neck: full range of motion, normal inspection - RESPIRATORY Respiratory: chest non-tender, lungs clear, normal breath sounds - CARDIOVASCULAR Cardiovascular: normal peripheral pulses, tachycardia (102) - GASTROINTESTINAL (ABDOMEN) Abdominal Exam: normal bowel sounds, soft, guarding, tenderness (generalized). negative: rigid, rebound - LYMPHATIC Lymphatic: no adenopathy - MUSCULOSKELETAL Back Exam: normal inspection, no CVA tenderness, no vertebral tenderness Extremity: normal range of motion, non-tender, normal gait, normal inspection, normal capillary refill - SKIN Integumentary: normal color, normal turgor, warm/dry - NEUROLOGIC Neurologic: grossly normal, no motor/sensory deficits - PSYCHIATRIC Psych/Mental Status: normal mood/affect, normal thought content, normal thought process, oriented x 3 <Guanaco Santana - Last Filed: 08/24/18 19:09> Progress - PLAN OF CARE/RESULTS Progress/Plan/Lab Results: Vital Signs - 8 hr 08/24/18 17:05 Temperature 97.9 F Pulse Rate 102 H Respiratory Rate 18 Blood Pressure 128/76 O2 Sat by Pulse Oximetry 100 Orders Category Date Time Status AMYLASE [CHEM] Stat Lab 08/24/18 17:25 Uncollected CBC WITH ELECTRONIC DIFF [HEME] Stat Lab 08/24/18 17:24 Uncollected COMPREHENSIVE METABOLIC PANEL [CHEM] Stat Lab 08/24/18 17:24 Uncollected LIPASE [CHEM] Stat Lab 08/24/18 17:25 Uncollected UA [URINALYSIS DIPSTICK ONLY PL] [URINALYSIS] Stat Lab 08/24/18 17:24 Uncollected URINE DRUG SCREEN PL Stat Lab 08/24/18 17:25 Uncollected Result Diagrams: 08/24/18 17:45 08/24/18 17:45 - REASSESSMENT Reassessment #1 Time Reassessed: 17:36 Status: unchanged Reassessment Comment: pt is lying in bed - CHANGE OF SHIFT REPORT (ED Provider) 1 Report Given and Care Transferred to:: Dr Cedillo Time of Transfer: 19:00 Items Pending: Labs, XRAY Results <Guanaco Santana - Last Filed: 08/24/18 19:09> - PLAN OF CARE/RESULTS Progress/Plan/Lab Results: Vital Signs - 8 hr 08/24/18 17:05 08/24/18 19:13 Temperature 97.9 F 98.2 F Pulse Rate 102 H 85 Respiratory Rate 18 16 Blood Pressure 128/76 129/90 O2 Sat by Pulse Oximetry 100 100 Laboratory Results - last 24 hr 08/24/18 08/24/18 08/24/18 17:45 17:45 18:18 WBC 8.33 RBC 4.89 Hgb 14.6 Hct 42.4 MCV 86.7 MCH 29.9 MCHC 34.4 RDW Std Deviation 13.1 Plt Count 404 H MPV 9.2 Immature Gran % (Auto) 0.4 Neut % (Auto) 74.6 Lymph % (Auto) 15.1 L [place] % (Auto) 9.1 Eos % (Auto) 0.2 Baso % (Auto) 0.6 Immature Gran # (Auto) 0.03 Neut # (Auto) 6.21 Lymph # (Auto) 1.26 [place] # (Auto) 0.76 H Eos # (Auto) 0.02 Baso # (Auto) 0.05 Sodium 134 L Potassium 3.4 L Chloride 85 L Carbon Dioxide 31 Anion Gap 18 BUN 39 H Creatinine 2.6 H Estimated GFR/1.73 m2 28 BUN/Creatinine Ratio 15 Glucose 100 Calculated Osmolality 278 Calcium 10.5 H Total Bilirubin 1.30 H AST 38 H ALT 25 Alkaline Phosphatase 83 Total Protein 8.7 H Albumin 4.7 Globulin 4.0 Albumin/Globulin Ratio 1.0 Amylase 178 Lipase 27 Urine Source CLEAN CATCH Urine Color YELLOW Urine Clarity CLEAR Urine pH 6.5 Ur Specific [place] 1.020 Urine Protein 2+(100 mg/dL) A Urine Ketones 1+(Small) A Urine Blood 1+ A Urine Nitrite NEGATIVE Urine Bilirubin NEGATIVE Urine Urobilinogen 4 Urine WBC TRACE A Urine Glucose NEGATIVE Urine Opiates Screen Ur Oxycodone Screen Urine Methadone Screen U Propoxyphene Qual Ur Barbituates Screen Ur Tricyclics Screen Ur Phencyclidine Scrn Ur Amphetamines Screen U Methamphetamines Scrn U Benzodiazepines Scrn Urine Cocaine Screen U Cannabinoids Screen 08/24/18 18:18 WBC RBC Hgb Hct MCV MCH MCHC RDW Std Deviation Plt Count MPV Immature Gran % (Auto) Neut % (Auto) Lymph % (Auto) [place] % (Auto) Eos % (Auto) Baso % (Auto) Immature Gran # (Auto) Neut # (Auto) Lymph # (Auto) [place] # (Auto) Eos # (Auto) Baso # (Auto) Sodium Potassium Chloride Carbon Dioxide Anion Gap BUN Creatinine Estimated GFR/1.73 m2 BUN/Creatinine Ratio Glucose Calculated Osmolality Calcium Total Bilirubin AST ALT Alkaline Phosphatase Total Protein Albumin Globulin Albumin/Globulin Ratio Amylase Lipase Urine Source Urine Color Urine Clarity Urine pH Ur Specific [place] Urine Protein Urine Ketones Urine Blood Urine Nitrite Urine Bilirubin Urine Urobilinogen Urine WBC Urine Glucose Urine Opiates Screen NONE DETECTED Ur Oxycodone Screen NONE DETECTED Urine Methadone Screen NONE DETECTED U Propoxyphene Qual NONE DETECTED Ur Barbituates Screen NONE DETECTED Ur Tricyclics Screen NONE DETECTED Ur Phencyclidine Scrn NONE DETECTED Ur Amphetamines Screen NONE DETECTED U Methamphetamines Scrn NONE DETECTED U Benzodiazepines Scrn NONE DETECTED Urine Cocaine Screen NONE DETECTED U Cannabinoids Screen NONE DETECTED Orders Category Date Time Status ABDOMEN FLAT/UPRIGHT [RAD] Stat Exams 08/24/18 19:07 Completed AMYLASE [CHEM] Stat Lab 08/24/18 17:45 Completed CBC WITH ELECTRONIC DIFF [HEME] Stat Lab 08/24/18 17:45 Completed COMPREHENSIVE METABOLIC PANEL [CHEM] Stat Lab 08/24/18 17:45 Completed LIPASE [CHEM] Stat Lab 08/24/18 17:45 Completed UA [URINALYSIS DIPSTICK ONLY PL] [URINALYSIS] Stat Lab 08/24/18 18:18 Completed URINE DRUG SCREEN PL Stat Lab 08/24/18 18:18 Completed 0.9% Sodium Chloride Inj [Ns] 1,000 ml Med 08/24/18 17:52 Discontinued IV 999 mls/hr 0.9% Sodium Chloride Inj [Ns] 1,000 ml Med 08/24/18 21:05 Active IV 999 mls/hr Ondansetron [Zofran] Med 08/24/18 21:05 Discontinued 4 mg IV NOW ONE Result Diagrams: 08/24/18 17:45 08/24/18 17:45 - CONSULTS/PCP/HOSPITALIST Notification #1 *Consult/PCP/Hospitalist*: DR CASTRO Time Discussed: 21:50 Consult Disposition: Admit <Yobany Cedillo - Last Filed: 08/24/18 21:51> Departure - Departure Date of Disposition Decision: 08/24/18 - Critical Care Note This patient required my direct & personal management of CC.: Yes Total Time (mins): 39 Critical Care Statement: This patient required my direct personal management to treat or rule out processes, the absence of which, could potentiallly result in sudden, clinically significant life or limb threatening deterioration. <Guanaco Santana - Last Filed: 08/24/18 19:09> - Departure Time of Disposition Decision: 21:51 Certified Medical Emergency: Emergent - Critical Care Note This patient required my direct & personal management of CC.: No <Yobany Cedillo - Last Filed: 08/24/18 21:51> - Departure DIAGNOSIS: History of renal failure, Pulmonary nodule, Dehydration, Tobacco use disorder, Abdominal pain, Renal insufficiency, mild Nausea and vomiting Qualifiers: Vomiting type: unspecified Vomiting Intractability: non-intractable Qualified Code(s): R11.2 - Nausea with vomiting, unspecified Disposition: ADMITTED INPATIENT 09 Condition: Stable Referrals and Follow-Ups: None,PCP [Primary Care Provider] - Attestation - Physician/ SOFIA Attestation Patient care was provided by Advanced Practice Provider:: No The physician spent face to face time with patient:: Yes Advanced Practice Provider documentation review:: Supervising physician onsite and consulted in the evaluation and care of this patient. The physician did have a face to face encounter with the patient. <Guanaco Santana - Last Filed: 08/24/18 19:09> - Physician/ SOFIA Attestation Patient care was provided by Advanced Practice Provider:: No The physician spent face to face time with patient:: Yes Advanced Practice Provider documentation review:: Supervising physician onsite and consulted in the evaluation and care of this patient. The physician did have a face to face encounter with the patient. <Yobany Cedillo - Last Filed: 08/24/18 21:51> This chart was documented by the indicated scribe, (Lorene Mcgowan Scribe) and accurately reflects the services I performed and decisions made by me, Guanaco Santana MD, as attested by the provider's signature.
--- NOTE | 2018-08-24 19:37 | Diag Imaging Result Doc PS360 ---
EXAM: ABDOMEN FLAT/UPRIGHT HISTORY: pain TECHNIQUE: Flat and upright, two views COMPARISON: None. FINDINGS: No free air beneath the diaphragm. No bowel obstruction. No organomegaly. No foreign body. No abnormal calcification. IMPRESSION: Negative exam. Electronically signed by Carlitos Khan 08/24/2018 7:35 PM
[2018-08-24] MEDS ORDERED: ZOFRAN IV ONE (21:05)
[2018-08-25 06:09] LABS: BASO# 0.03 X1000 (0.0-0.2); BASO% 0.4 % (0.0-0.8); EOS# 0.06 X1000 (0.0-0.7); EOS% 0.8 % (0.0-10.0); HEMATOCRIT 36.1 % (42.0-52.0); IMM GRAN# 0.02 X1000 (0.0-0.04); IMM GRAN% 0.3 % (0.0-0.5); LYMPH# 1.96 X1000 (1.2-3.4); LYMPH% 24.7 % (20.5-51.1); MCH 29.8 PG (27-31); MCHC 33.2 g/dL (33-37); MCV 89.6 FL (81-99); MONO% 12.6 % (1.7-9.3); MPV 9.5 FL (7.4-10.4); NEUT# 4.86 X1000 (1.4-6.5); NEUT% 61.2 % (42.2-75.2); PLT 344 X1000 (130-400); RBC 4.03 XMIL (4.7-6.1); RDW 13.3 % (11.5-14.5); WBC 7.93 X1000 (4.8-10.8)
[2018-08-25 07:21] LABS: ALBUMIN 3.7 g/dL (3.5-5.0); CALCIUM 8.7 mg/dL (8.8-10.2); CREATININE 1.5 mg/dL (0.7-1.2); POTASSIUM 3.4 mmol/L (3.5-5.1); TOTAL BILIRUBIN 0.8 mg/dL (0.20-1.00); TOTAL PROTEIN 6.8 g/dL (6.3-8.3)
[2018-08-25 10:48] LABS: LYMPHS 25 % (21-51); MONO 10 % (1-9); SEGS 65 % (42-75)
--- NOTE | 2018-08-25 10:57 | HISTORY AND PHYSICAL ---
PRIMARY CARE PHYSICIAN: Dr. Antonio Stapleton. CHIEF COMPLAINT: Abdominal pain with nausea and vomiting. HISTORY OF PRESENTING ILLNESS: This is a 38-year-old male who presents to [facility] ER with complaints of diffuse abdominal pain with nausea and vomiting stated that he had vomited approximately 40 times in the last couple of days. He was seen in the ER on 08/23/2018. He had a CT of the abdomen and pelvis at that time that was unremarkable. No acute process noted. He was noted at that time to have a creatinine of 4.1, but has underlying chronic kidney disease. He was discharged home to follow up with his primary care, and to get a nephrology consult. He returned back to the ER last night with complaints of continued abdominal pain with nausea and vomiting. We did a flat and upright of the abdomen and was a negative exam. His creatinine when he arrived last night was 2.6. This morning we rechecked it, and it is down to 1.5 after some fluid hydration. He is tolerating a regular diet at this time with no further nausea or vomiting, but he was admitted for further evaluation and treatment. PAST MEDICAL HISTORY: Hypertension, hyperlipidemia, diabetes type 2, asthma, bronchitis, chronic kidney disease, and GERD. PAST SURGICAL HISTORY: None. FAMILY HISTORY: Reviewed and noncontributory. SOCIAL HISTORY: He currently lives with family. He smokes half a pack of cigarettes a day, and has done so for approximately 15 years. Denies any alcohol or illicit drug use. ALLERGIES: He has no known drug allergies. HOME MEDICATIONS: He takes benzonatate 100 mg p.o. t.i.d., citalopram 20 mg p.o. at bedtime, lisinopril 10 mg p.o. every morning, metformin 500 mg p.o. at bedtime, Zofran 4 mg p.o. q.6 hours p.r.n. will be held, potassium 10 mEq p.o. daily, and simvastatin 5 mg p.o. at bedtime. LABORATORY DATA: White blood cell count of 8.33, hemoglobin 14.6, hematocrit 42.4, and platelets 404,000. Sodium 134, potassium 3.4, chloride 85, CO2 31, BUN of 39, creatinine 2.6, and glucose 100. Urinalysis was negative. Urine drug screen was negative. Abdominal x-ray showed a negative exam. REVIEW OF SYSTEMS: He denied any fever, chills, blurred vision, dizziness, chest pain, coughing, or shortness of breath. He was positive for some diffuse abdominal pain, nausea and vomiting. Denied any constipation, diarrhea, burning or hurting with urination. PHYSICAL EXAMINATION: VITAL SIGNS: On arrival, he had a temperature of 97.9 degrees, pulse of 102, respirations 18, blood pressure 128/76, and saturating 100% on room air. GENERAL: This is a 38-year-old male who is lying in the bed and answers questions appropriately. HEENT: He is normocephalic and atraumatic. Normal ENT inspection. Oropharynx and nares are clear. Eyes: Pupils are equal, round, reactive to light and accommodation. Extraocular movements are intact. NECK: Normal inspection. Normal range of motion. LUNGS: Clear to auscultation bilaterally with equal lung expansion and chest wall movement. HEART: Regular rate and rhythm. No murmurs, rubs, or gallops. ABDOMEN: Soft, nontender, nondistended. Bowel sounds are present x4 quadrants. MUSCULOSKELETAL: He has 5/5 strength x4 extremities. NEUROLOGICAL: The cranial nerves 2-12 appear grossly intact. ASSESSMENT: 1. Acute kidney injury on chronic kidney disease. 2. Nausea and vomiting. 3. Diabetes type 2. 4. Tobacco abuse. PLAN: He was admitted to the medical unit at [facility], placed on telemetry. Regular diet. He received 2 normal saline boluses in the emergency room and then at 150 mL an hour. We will continue his home medications. If he does not have any further nausea or vomiting by the time he is seen by attending, I feel that he can most likely be safely discharged home later this afternoon. Dictated by BEATA Abad for Yossi Alvarez MD cc: BEATA Abad MD Dr. Powell
[2018-08-25] MEDS ORDERED: TESSALON PO SCH (13:00)
[2018-08-25 13:50] VITALS: BP 130/80
--- NOTE | 2018-08-25 16:27 | HISTORY AND PHYSICAL ---
ADDENDUM: The patient was seen by me [id number] and I agree with the assessment and plan of nurse practitioner, Мария Decker. This is a 38-year-old gentleman who has been admitted to the hospital after having intractable vomiting and abdominal pain. He was diagnosed as having acute kidney injury secondary to nausea and vomiting and also he has history of stage 3 chronic kidney disease. He also has diabetes and hypertension history. We will give him IV fluids and monitor him. The patient can be discharged home later today. cc: Yossi Alvarez MD
[2018-08-25] MEDS ORDERED: ZOCOR PO SCH (21:00)
[2018-08-25] MEDS ORDERED: GLUCOPHAGE XR PO SCH (21:00)
[2018-08-25] MEDS ORDERED: LEXAPRO PO SCH (21:00)
--- NOTE | 2018-08-26 02:32 | DISCHARGE SUMMARY ---
ADMISSION DATE: 08/24/2018 DISCHARGE DATE: 08/25/2018 DISCHARGE DIAGNOSES: 1. Abdominal pain, with nausea and vomiting causing acute kidney injury. 2. History of stage 3 chronic kidney disease. 3. Type 2 diabetes mellitus. 4. Hypertension. HOSPITAL COURSE: This is a 38-year-old gentleman, who presented to the emergency department with intractable vomiting and abdominal pain. He was noticed to have acute kidney injury on top of chronic kidney disease, and therefore was admitted to the hospital. He had his BUN and creatinine at 39 and 2.6 respectively on admission, which have now improved to 29 and 1.5 this morning. He is well and having no nausea or vomiting anymore. He has been tolerating oral intake and wants to go home. Since his condition has improved, we are going to let him go home today. DISCHARGE MEDICATIONS: 1. Lexapro 20 mg orally once daily. 2. Lisinopril 10 mg orally once daily. 3. Metformin ER 500 mg orally once daily. 4. Potassium chloride 10 mEq orally once daily. 5. Simvastatin 5 mg orally once daily at bedtime. 6. Zofran 4 mg orally every 6 hours as needed for nausea. FOLLOWUP: He will follow up with his PCP in approximately 1 week. cc: Yossi Alvarez MD
[2018-08-26] MEDS ORDERED: KLOR-CON PO SCH (09:00)
[2018-08-26] MEDS ORDERED: PRINIVIL PO SCH (09:00)
== END 2018-08-25 14:35 | disposition home or self-care (01) ==
LOC: P.ED 17:04 → P.MEDSURG 17:04 → SUATTDRO 22:45
PROVIDERS: ATTEND Internal Medicine
CPT/HCPCS: 74019; 74020; 80053; 80104; 80301; 80305; 81003; 82150; 83690; 85025; 96361; 96374; 99285; 99291; A9270; G0431; G0434; G0477; J2405; J7030

== ENCOUNTER 2019-04-25 23:55 | Inpatient (IN) ==
[2019-04-26] MEDS ORDERED: NS 1,000 ML IV ONE ×3 (00:14→01:55)
[2019-04-26] MEDS ORDERED: DUONEB (A & A) INH ONE (00:19)
[2019-04-26 00:51] LABS: URINE SOURCE CLEAN CATCH
[2019-04-26 01:05] LABS: EOS# 0.05 X1000 (0.0-0.7); EOS% 0.5 % (0.0-10.0); HEMATOCRIT 44.1 % (42.0-52.0); HEMOGLOBIN 15.5 g/dL (14.0-18.0); LYMPH# 1.44 X1000 (1.2-3.4); LYMPH% 15.1 % (20.5-51.1); MCH 31.1 PG (27-31); MCHC 35.1 g/dL (33-37); MCV 88.4 FL (81-99); MONO# 1.19 X1000 (0.11-0.59); MONO% 12.5 % (1.7-9.3); MPV 10.1 FL (7.4-10.4); NEUT# 6.85 X1000 (1.4-6.5); NEUT% 71.9 % (42.2-75.2); PLT 292 X1000 (130-400); RBC 4.99 XMIL (4.7-6.1); RDW 12.9 % (11.5-14.5); WBC 9.53 X1000 (4.8-10.8)
[2019-04-26 01:14] LABS: BILIRUBIN URINE SMALL (NEGATIVE); BLOOD URINE NEGATIVE (NEGATIVE); COLOR YELLOW; GLUCOSE URINE NEGATIVE (NEGATIVE); KETONE URINE TRACE mg/dL (NEGATIVE); LEUKOCYTES URINE NEGATIVE (NEGATIVE); NITRITE URINE NEGATIVE (NEGATIVE); PROTEIN URINE 30 mg/dL (NEGATIVE); SP GRAVITY URINE 1.016; TURBIDITY URINE HAZY (CLEAR); UROBILINOGEN URINE 2 mg/dL (NORMAL)
[2019-04-26 01:15] LABS: UR EPITHELIAL CELLS <10 /HPF (<10); URINE BACTERIA NEGATIVE /HPF; URINE RBC <10 /HPF (<10); URINE WBC <10 /HPF (<10)
[2019-04-26 01:24] LABS: ALB/GLOB RATIO 1.6; ALBUMIN 4.5 g/dL (3.5-5.0); CALCIUM 9.2 mg/dL (8.8-10.2); CREATININE 3.8 mg/dL (0.7-1.2); POTASSIUM 2.6 mmol/L (3.5-5.1); TOTAL BILIRUBIN 1.21 mg/dL (0.20-1.00); TOTAL PROTEIN 7.3 g/dL (6.3-8.3)
[2019-04-26 01:30] LABS: UR AMPHETAMINES QUAL NONE DETECTED (NONE DETECT); UR BARBITUATES QUAL NONE DETECTED (NONE DETECT); UR BENZODIAZEPIN QUAL NONE DETECTED (NONE DETECT); UR CANNABINOIDS QUAL PRESUMPTIVE POSITIVE (NONE DETECT); UR COCAINE QUAL NONE DETECTED (NONE DETECT); UR METHADONE QUAL NONE DETECTED (NONE DETECT); UR OPIATES QUAL NONE DETECTED (NONE DETECT); UR OXYCODONE QUAL NONE DETECTED (NONE DETECT); UR PCP QUAL NONE DETECTED (NONE DETECT)
[2019-04-26] MEDS ORDERED: KLOR-CON PO ONE ×2 (01:50→10:30)
[2019-04-26] MEDS ORDERED: ATIVAN IV ONE (01:53)
[2019-04-26] MEDS ORDERED: HALDOL IM PRN (02:08)
[2019-04-26] MEDS ORDERED: TYLENOL PO PRN (06:18)
[2019-04-26] MEDS ORDERED: ZOFRAN IV PRN (06:18)
[2019-04-26 08:35] LABS: CALCIUM 8.1 mg/dL (8.8-10.2); CREATININE 2.6 mg/dL (0.7-1.2); POTASSIUM 2.6 mmol/L (3.5-5.1)
[2019-04-26] MEDS: POTASSIUM CHLORIDE 20 MEQ/SWI 20 MEQ/100 ML IVPB IV SCH ×2 (11:06→13:43)
[2019-04-26] MEDS: NS 1,000 ML IV SCH ×2 (11:58→22:37)
[2019-04-26 12:47] LABS: CALCIUM 8.2 mg/dL (8.8-10.2); CREATININE 2.3 mg/dL (0.7-1.2); POTASSIUM 3.1 mmol/L (3.5-5.1)
[2019-04-26 15:17] LABS: UR CREAT RANDOM 76.4 mg/dL (14-26); UR PROT RANDOM 8.9 mg/dL
[2019-04-26 19:09] LABS: CREATININE 1.7 mg/dL (0.7-1.2); POTASSIUM 3.6 mmol/L (3.5-5.1)
[2019-04-27 02:08] LABS: CALCIUM 9.1 mg/dL (8.8-10.2); CREATININE 1.6 mg/dL (0.7-1.2)
[2019-04-27 06:17] LABS: HEMATOCRIT 39.9 % (42.0-52.0); HEMOGLOBIN 13.6 g/dL (14.0-18.0); MCH 31.4 PG (27-31); MCHC 34.1 g/dL (33-37); MCV 92.1 FL (81-99); RBC 4.33 XMIL (4.7-6.1); RDW 13.3 % (11.5-14.5); WBC 6.36 X1000 (4.8-10.8)
[2019-04-27 06:39] LABS: ALB/GLOB RATIO 1.5; ALBUMIN 3.7 g/dL (3.5-5.0); DIRECT BILIRUBIN 0.2 mg/dL (0.00-0.20); MAGNESIUM 2.3 mg/dL (1.5-2.7); PHOSPHORUS 1.7 mg/dL (2.7-4.5); TOTAL BILIRUBIN 0.9 mg/dL (0.20-1.00); TOTAL PROTEIN 6.1 g/dL (6.3-8.3)
[2019-04-27] MEDS ORDERED: KLOR-CON PO ONE (10:34)
[2019-04-27] MEDS ORDERED: SEROQUEL PO ONE (15:42)
[2019-04-27] MEDS: NS 1,000 ML IV SCH (17:04)
[2019-04-27] MEDS: SEROQUEL PO SCH (20:56)
[2019-04-27] MEDS ORDERED: LEXAPRO PO SCH (21:00)
[2019-04-28] MEDS: NS 1,000 ML IV SCH ×3 (00:21→03:00)
[2019-04-28 06:51] LABS: AGAP 8; BUN 19 mg/dL (8-22); CALCIUM 8.3 mg/dL (8.8-10.2); CHLORIDE 102 mmol/L (98-107); COSMO 273; CREATININE 1.1 mg/dL (0.7-1.2); ESTIMATED GFR > 60; GLUCOSE 84 mg/dL (70-104); POTASSIUM 4.1 mmol/L (3.5-5.1); SODIUM 136 mmol/L (136-145); TCO2 26 mmol/L (25-35)
[2019-04-28 07:27] VITALS: BP 131/67
[2019-04-28] MEDS: SEROQUEL PO SCH (09:57)
== END 2019-04-28 10:25 | disposition home or self-care (01) ==
LOC: ED 23:55 → ICU 04-26 04:48 → SUATTDRO 04-26 04:48 → 2N 04-26 14:55
PROVIDERS: ATTEND Family Medicine

== ENCOUNTER 2019-07-07 21:38 | Inpatient (IN) ==
[2019-07-08 02:42] LABS: EOS# 0.03 X1000 (0.0-0.7); EOS% 0.3 % (0.0-10.0); HEMATOCRIT 51.1 % (42.0-52.0); IMM GRAN# 0.02 X1000 (0.0-0.04); IMM GRAN% 0.2 % (0.0-0.5); LYMPH# 1.06 X1000 (1.2-3.4); LYMPH% 12.1 % (20.5-51.1); MCH 30.3 PG (27-31); MCHC 35.2 g/dL (33-37); MCV 85.9 FL (81-99); MONO# 1.18 X1000 (0.11-0.59); MONO% 13.5 % (1.7-9.3); MPV 10.6 FL (7.4-10.4); NEUT# 6.46 X1000 (1.4-6.5); NEUT% 73.9 % (42.2-75.2); PLT 250 X1000 (130-400); RBC 5.95 XMIL (4.7-6.1); RDW 12.4 % (11.5-14.5); WBC 8.75 X1000 (4.8-10.8)
[2019-07-08 03:41] LABS: ALB/GLOB RATIO 1.8; ALBUMIN 5.1 g/dL (3.5-5.0); CREATININE 4.4 mg/dL (0.7-1.2); POTASSIUM 3.5 mmol/L (3.5-5.1); TOTAL BILIRUBIN 1.44 mg/dL (0.20-1.00); TOTAL PROTEIN 7.9 g/dL (6.3-8.3)
[2019-07-08 03:59] LABS: CK INDEX 0.9 (0.0-2.5); CK-MB 18.47 ng/mL (0.0-5.0)
[2019-07-08 04:35] LABS: URINE SOURCE CLEAN CATCH
[2019-07-08 04:42] LABS: BILIRUBIN URINE NEGATIVE (NEGATIVE); BLOOD URINE MODERATE (NEGATIVE); COLOR YELLOW; GLUCOSE URINE NEGATIVE (NEGATIVE); KETONE URINE NEGATIVE (NEGATIVE); LEUKOCYTES URINE NEGATIVE (NEGATIVE); NITRITE URINE NEGATIVE (NEGATIVE); PROTEIN URINE 30 mg/dL (NEGATIVE); SP GRAVITY URINE 1.015; TURBIDITY URINE CLEAR (CLEAR); UROBILINOGEN URINE NORMAL (NORMAL)
[2019-07-08 04:43] LABS: UR EPITHELIAL CELLS <10 /HPF (<10); URINE BACTERIA NEGATIVE /HPF; URINE RBC <10 /HPF (<10); URINE WBC <10 /HPF (<10)
[2019-07-08] MEDS ORDERED: NS 1,000 ML IV ONE (04:44)
--- NOTE | 2019-07-08 05:02 | PROVIDER DOCUMENTATION ---
This chart was entered by Elida Tee Scribe, acting as scribe for Nate Dietrich MD. HPI-General Adult - General Chief Complaint: Abdominal Pain Stated Complaint: abdominal pain Time Seen by Provider: 07/08/19 01:27 Source: patient Allergies/Adverse Reactions: Patient Allergies Allergy/AdvReac Type Severity Reaction Status Date / Time No Known Allergies Allergy Verified 07/07/19 21:45 Home Medications: Home Medication List Medication Instructions Recorded Confirmed Last Taken Type Escitalopram Oxalate 20 mg PO HS 12/13/17 07/07/19 07/07/19 History Lisinopril 10 mg PO QAM 08/19/18 07/07/19 07/07/19 History Simvastatin [Zocor] 5 mg PO QHS 08/19/18 07/07/19 07/07/19 History Docusate Sodium [Colace] 100 mg PO DAILY #30 cap 07/06/19 07/07/19 07/07/19 Rx Magnesium Citrate [Citrate of 300 ml PO ONCE #1 bottle 07/06/19 07/07/19 07/07/19 Rx Magnesia] - History of Present Illness -Gen Adult Nature of Presenting Problems: pt is a 39 yobm c/o weakness, unable to keep food down, abd pain, johnson, hematemesis in er, cp and cough. pt has hx of htn, took lisinopril this am. pt is a smoker, denies alcohol and drug use. no diarrhea, fever or chills. pt triage note sts pt was seen in er earlier today and d/c, returns not feeling any relief. Severity: reports: mild Onset/Duration: reports: unsure Timing: reports: still present Context/Activities at Onset: reports: none Modifying Factors: improves with: nothing Associated Symptoms: reports: chest pain, cough, EENT symptoms, vomiting Similar Symptoms Previously?: Yes Recently seen or treated by another doctor?: Yes (seen in er earlier today ) Review of Systems - Adult - REVIEW OF SYSTEMS - ADULT Constitutional: reports: no symptoms reported. denies: fever, fatique, night sweats Eyes: reports: no symptoms reported Ears, Nose, Mouth & Throat: reports: no symptoms reported Cardiovascular: reports: see HPI, chest pain. denies: heart murmur, irregular heart rate, poor circulation Respiratory: reports: see HPI, cough. denies: dyspnea on exertion, shortness of breath, wheezing Gastrointestinal: reports: see HPI, abdominal pain, hematemesis (x1 in er), poor appetite. denies: diarrhea, difficulty swallowing, nausea, vomiting Genitourinary: reports: no symptoms reported Musculoskeletal: reports: no symptoms reported Integumentary: reports: no symptoms reported Neurological: reports: no symptoms reported Psychiatric: reports: no symptoms reported Endocrine: reports: no symptoms reported Hematologic/Lymphatic: reports: no symptoms reported Allergic/Immunologic: reports: no symptoms reported All Other Systems: Reviewed and Negative Past History - Adult - PAST MEDICAL HISTORY-ADULT Review of Records: reports: Nursing Assessment Review, Medications Reviewed, Social history reviewed & non-contributory. Major Childhood Illnesses: reports: denies history Cardiovascular: reports: HTN, hyperlipidemia Respiratory: reports: asthma, bronchitis, other (nodule in lung) Gastrointestinal: reports: GERD Obstetrical/Gynecological: reports: denies history Genitourinary: reports: kidney disease Musculoskeletal: reports: denies history Neurological: reports: denies history Psychiatric: reports: anxiety Endocrine/Immune: reports: Diabetes Other Conditions: reports: denies history - PRIOR SURGERIES/PROCEDURES Surgical/Procedure History: reports: colonoscopy - IMMUNIZATION STATUS Childhood Immunizations: See Nurse Assessment Flu Vaccine: See Nurse Assessment - FAMILY HISTORY Family History: reviewed, not pertinent - SOCIAL HISTORY Smoking: cigarettes, less than 1 pack/day Provider spent 3-5 mins advising pt. on dangers of tobacco.: Discussed manners to quit use, and f/u contacts for add'l counseling. Substance Use: none/never Physical Exam-General - PHYSICAL EXAM-ADULT Initial Vital Signs Reviewed: Yes - CONSTITUTIONAL General Appearance: no apparent distress, slow to respond. negative: cachetic, lethargic, combative - EYES Eyes: PERRL/EOMI, pink conjunctivae - HEAD, EARS, NOSE, MOUTH & THROAT HENMT: normocephalic/atraumatic, moist mucous membranes - NECK Neck: non-tender, full range of motion, supple, normal inspection - RESPIRATORY Respiratory: chest non-tender, lungs clear, normal breath sounds - CARDIOVASCULAR Cardiovascular: normal peripheral pulses, regular rate, rhythm - GASTROINTESTINAL (ABDOMEN) Abdominal Exam: normal bowel sounds, non tender, soft, no organomegaly, no pulsatile mass. negative: distended, rigid, rebound, tenderness - MUSCULOSKELETAL Back Exam: normal inspection Extremity: normal range of motion, non-tender, normal inspection - SKIN Integumentary: normal color, normal turgor, warm/dry - NEUROLOGIC Neurologic: grossly normal, no motor/sensory deficits - PSYCHIATRIC Psych/Mental Status: normal mood/affect, normal thought content, normal thought process, oriented x 3 Progress - PLAN OF CARE/RESULTS Progress/Plan/Lab Results: Vital Signs - 8 hr 07/07/19 21:41 Temperature 98.1 F Pulse Rate 93 H Respiratory Rate 20 Blood Pressure 109/74 O2 Sat by Pulse Oximetry 100 Result Diagrams: 07/08/19 02:27 07/08/19 02:27 - CONSULTS/PCP/HOSPITALIST Notification #1 *Consult/PCP/Hospitalist*: Dr Mei Time Discussed: 04:50 Consult Disposition: Admit Departure - Departure Date of Disposition Decision: 07/08/19 Time of Disposition Decision: 05:01 DIAGNOSIS: Hyponatremia, Dehydration, Generalized weakness Disposition: ADMITTED INPATIENT 09 Certified Medical Emergency: Emergent Condition: Stable Referrals and Follow-Ups: Antonio Stapleton Jr, MD [Primary Care Provider] - - Critical Care Note This patient required my direct & personal management of CC.: No Attestation - Physician/ SOFIA Attestation Patient care was provided by Advanced Practice Provider:: No The physician spent face to face time with patient:: Yes Advanced Practice Provider documentation review:: Supervising physician onsite and consulted in the evaluation and care of this patient. The physician did have a face to face encounter with the patient. This chart was documented by the indicated scribe, (Elida Tee Scribe) and accurately reflects the services I performed and decisions made by me, Nate Dietrich MD, as attested by the provider's signature.
[2019-07-08] MEDS ORDERED: DUONEB (A & A) INH PRN (06:56)
[2019-07-08] MEDS: HUMULIN R SUBQ SCH ×4 (07:13→23:51)
--- NOTE | 2019-07-08 07:26 | HISTORY AND PHYSICAL ---
CHIEF COMPLAINT: Weakness about 1 week. HISTORY OF PRESENT ILLNESS: Mr. Reinaldo Morejon is a 39-year-old male who has a history of hypertension, chronic kidney disease, depression, hyperlipidemia, gastroesophageal reflux disease, who presents to the hospital because of weakness, which he has been experiencing for about 1 week. He also describes having some vomiting, along with abdominal pains. No fever. Describes having headaches. When he presented to the ER, he was found to have a sodium level of 119, and his renal function was noted to be impaired at BUN/creatinine being 135/4.4. His CK level was elevated at 2140, and he was noted to have some blood in the urine. The patient has been admitted to the floor now for further management. PAST MEDICAL HISTORY: Hypertension, hyperlipidemia, bronchial asthma, gastroesophageal reflux disease, chronic kidney disease, diabetes mellitus. SOCIAL HISTORY: He smokes cigarettes. No alcohol use. He uses marijuana. ALLERGIES: No known drug allergies. PAST SURGICAL HISTORY: The patient cannot state which surgery he has had in the past. FAMILY HISTORY: Positive for diabetes mellitus. MEDICATIONS: Include the following: Escitalopram 20 mg p.o. at bedtime, lisinopril 10 mg p.o. every a.m., simvastatin 5 mg p.o. at bedtime, Colace 100 mg p.o. daily, magnesium citrate 30 mL as directed. REVIEW OF SYSTEMS: Constitutional: No fever. SENIOR AGRICULTURAL ASSISTANT: No headaches. Eyes: Blurred vision. Cardiovascular: Has chest pain. Respiratory: Denies cough. : No dysuria. Psychiatric: No anxiety or depression. Endocrinology: Has diabetes. Dermatology: No skin lesions. Hematology: No bleeding problems. Musculoskeletal: No joint pains. Allergy/Immunology: Has symptoms suggestive of allergic rhinitis. PHYSICAL EXAMINATION: VITAL SIGNS: Temperature 98.1 degrees, pulse 93, respirations 20, blood pressure is 109/74, oxygen saturation 100%. HEENT: Atraumatic, normocephalic. He is anicteric. No oral lesions noted. NECK: No lymphadenopathy or thyromegaly. CARDIOVASCULAR: S1, S2. RESPIRATORY: Has evidence of good air entry bilaterally. ABDOMEN: Soft, nontender. No masses felt. EXTREMITIES: No evidence of edema. CENTRAL NERVOUS SYSTEM: No obvious focal deficit noted. LABORATORY DATA: WBC is 8.75, hematocrit is 51.1, with a platelet count of 250,000. Sodium is 119, potassium is 3.5, chloride is 58, bicarb is 41, BUN is 135, creatinine is 4.4. AST 91, ALT 52. CK 2140. Blood sugar level is 125. ASSESSMENT AND PLAN: 1. Hyponatremia. Will restrict fluid intake to 1 liter per day. Maintain the patient on intravenous fluids. Check urine for creatinine sodium as well as osmolality. Check cortisol level and also TSH level. Discontinue escitalopram at this time. Obtain CT scan of the brain without contrast. Follow up on official chest x-ray report. 2. Acute kidney injury. Maintain the patient on intravenous fluids. Discontinue lisinopril. Follow up on renal function. Check intact PTH level. Check 25- hydroxyvitamin D level. Check urine electrolytes. Also obtain followup on renal ultrasound and obtain a Nephrology evaluation. 3. Rhabdomyolysis. Maintain the patient on intravenous fluids, normal saline at 150 mL/h. Follow up on CK levels. 4. Diabetes mellitus. Monitor blood sugar levels. Maintain the patient on sliding scale insulin. Check hemoglobin A1c level. 5. Hematuria. Check urine culture. Follow up on renal ultrasound. If hematuria persists, consult Urology. 6. Hypertension. Optimize blood pressure control. 7. Deep vein thrombosis prophylaxis. Sequential compression devices. 8. Gastrointestinal prophylaxis. Proton pump inhibitor. 9. Abnormal liver function tests. Check hepatitis panel as well as abdominal ultrasound. 10. Depression. Aware. Consider using a different agent which is less likely to cause hyponatremia. 11. Tobacco use history. Recommend nicotine patch. 12. Bronchial asthma. Nebulized bronchodilators as needed. cc: Lang Mei MD MTDD
[2019-07-08] MEDS: PRILOSEC PO SCH (07:52)
[2019-07-08] MEDS: NS 1,000 ML IV SCH ×3 (07:52→23:51)
--- NOTE | 2019-07-08 08:11 | Diag Imaging Result Doc PS360 ---
CHEST-1 VIEW - 07/08/2019 INDICATION: Epigastric pain COMPARISON: 04/26/2019 FINDINGS: The lungs are normally expanded and clear. Heart size and mediastinal contours are normal. No pneumothorax or pleural effusion. IMPRESSION: Negative exam. Electronically signed by Antonio Ca 07/08/2019 8:08 AM
[2019-07-08] MEDS: NORVASC PO SCH (08:59)
--- NOTE | 2019-07-08 09:33 | Diag Imaging Result Doc PS360 ---
CT HEAD W/O CONTRAST - 07/08/2019 INDICATION: hyponatremia COMPARISON: 04/26/2019 FINDINGS: The ventricles and sulci are normal in size and contour. No intracranial mass or hemorrhage. The skull is intact. The sinuses mastoids and middle ears are clear. IMPRESSION: Negative exam. This exam was performed using automated exposure control, adjustment of mA or kV according to patient size, and/or use of iterative reconstruction technique Electronically signed by Antonio Ca 07/08/2019 9:30 AM
--- NOTE | 2019-07-08 09:52 | Diag Imaging Result Doc PS360 ---
US ABDOMEN-COMPLETE - 07/08/2019 INDICATION: abn lfts, COMPARISON: 09/29/2018 FINDINGS: The kidneys are somewhat hyperechoic, particularly on the right side. Renal sizes remain normal. No hydronephrosis. Possible tiny left renal stone measuring 4 mm. The right kidney measures 11.9 x 6.6 x 6.1 cm. The left kidney measures 11.3 x 5.5 x 6.6 cm. The liver, gallbladder, spleen, and pancreas are normal. Common bile duct measures 4 mm. Aorta, IVC, and main portal vein are patent. IMPRESSION: 1. Questionable increased echotexture of the kidneys, particularly on the right side. This may reflect pyelonephritis or medical renal disease. No hydronephrosis. 2. Possible small nonobstructing stone of the left kidney. Electronically signed by Antonio Ca 07/08/2019 9:50 AM
[2019-07-08 14:08] LABS: UR AMPHETAMINES QUAL NONE DETECTED (NONE DETECT); UR BARBITUATES QUAL NONE DETECTED (NONE DETECT); UR BENZODIAZEPIN QUAL NONE DETECTED (NONE DETECT); UR CANNABINOIDS QUAL PRESUMPTIVE POSITIVE (NONE DETECT); UR COCAINE QUAL NONE DETECTED (NONE DETECT); UR METHADONE QUAL NONE DETECTED (NONE DETECT); UR OPIATES QUAL NONE DETECTED (NONE DETECT); UR OXYCODONE QUAL NONE DETECTED (NONE DETECT); UR PCP QUAL NONE DETECTED (NONE DETECT)
[2019-07-09] MEDS: NS 1,000 ML IV SCH ×4 (04:44→22:59)
[2019-07-09] MEDS: PRILOSEC PO SCH (06:14)
[2019-07-09] MEDS: HUMULIN R SUBQ SCH ×4 (07:17→22:59)
[2019-07-09 07:28] LABS: HEMOGLOBIN A1C 5.2 % (4.8-6.0)
[2019-07-09 07:35] LABS: ALBUMIN 3.6 g/dL (3.5-5.0); CALCIUM 8.6 mg/dL (8.8-10.2); CREATININE 2.9 mg/dL (0.7-1.2); PHOSPHORUS 2.4 mg/dL (2.7-4.5); POTASSIUM 2.9 mmol/L (3.5-5.1)
[2019-07-09] MEDS: NORVASC PO SCH (08:17)
[2019-07-09] MEDS: KLOR-CON PO SCH ×2 (15:10→20:50)
--- NOTE | 2019-07-09 15:16 | NEPHROLOGY CONSULTATION ---
DATE: 07/09/2019 REASON FOR ADMISSION: Weakness x1 week. REASON FOR CONSULT: Acute kidney injury, questionable rhabdomyolysis with hyponatremia, CONSULTING PHYSICIAN: Dr. Mei. HISTORY OF PRESENT ILLNESS: Mr. Morejon is a 39-year-old male who has a history of weakness x1 week. He states that he travels a lot, has been taking his normal medications. He describes nausea and vomiting x1 week with some abdominal pain, mostly towards the right. He denies any fever or chills. No diarrhea. He has been taking his medication per prescription including escitalopram and his lisinopril, along with magnesium citrate. Upon arrival in the emergency room, he had some labs drawn indicating a sodium of 119. His CK level was 2140, noted with hematuria. His BUN was 135 with a creatinine of 4.4. Subsequently, the patient was admitted to the hospital for further monitoring and observation. Started on IV fluids of normal saline at 150 mL an hour with further labs and followup. PAST MEDICAL HISTORY: Positive for hypertension, hyperlipidemia, bronchial asthma, esophageal reflux, known chronic kidney disease, though he states minimal, and diabetes mellitus type 2. SOCIAL HISTORY: He uses marijuana. No alcohol use. He smokes cigarettes. FAMILY HISTORY: Positive for diabetes mellitus. Negative for kidney injury or disease. PREVIOUS SURGICAL HISTORY: States he has had none. ALLERGIES: Listed as no known drug allergies. MEDICATIONS: Escitalopram, lisinopril, simvastatin, Colace, magnesium citrate. REVIEW OF SYSTEMS: Times 10 with pertinent positives listed above in the HPI. VITAL SIGNS: The patient's most recent vital signs, temperature 98.9 degrees, blood pressure 145/70, heart rate 66, respirations 18. He is on room air. Last recorded saturation 100%. He has had 3726 in, 3532 out to void with greater than 1 L sitting at the bedside to his urinal. LABORATORY DATA: This a.m., sodium 126, potassium 2.9, chloride is 81, CO2 is 34, BUN 86, creatinine 2.9, glucose 81, his anion gap is 11, calcium 8.6, phosphorus 2.4, albumin 3.6. Hemoglobin of 18. TSH of 1.38. PTH of 302. PHYSICAL EXAMINATION: This is a 39-year-old, -[place] male. He is resting quietly in bed. Head of the bed is elevated. He appears chronically ill. No acute distress. Skin is warm and dry. HEENT: Normocephalic, atraumatic. Conjunctivae are pale. He has NELLA. Mucous membranes are dry. Neck: Supple. Trachea midline. No evidence of JVD. Cardiovascular: Regular rate and rhythm. He has no murmur or gallop appreciated. Lungs: Clear to auscultation anteriorly. Equal excursion, on room air. Abdomen: Soft, nontender. Positive bowel sounds. Genitourinary: Not inspected. Patient has been voiding adequate amount to urinal. Extremities: Have no edema. No clubbing or cyanosis. Neurological: He is able to move all extremities well. Able to participate with the exam. Good participation with good memory of history. ASSESSMENT AND PLAN: 1. Acute kidney injury on chronic kidney disease, more than likely secondary to acute rhabdomyolysis. The patient's BUN and creatinine have improved. Adequate urine output. We will continue to monitor and follow. 2. Hyponatremia. The patient remains on a fluid restriction of 1 L a day, maintaining normal saline to his intravenous fluids. He is on escitalopram. This is been discontinued for possible indications of syndrome of inappropriate antidiuretic hormone secretion. 3. Rhabdomyolysis. Continues on intravenous fluids. CKs to follow. 4. Electrolytes. Patient has hypokalemia. We will order replacement if not ordered at this time x1 with repeat labs. 5. Acid-base balance. Patient is slightly alkalotic. Continue to monitor. 6. Hypertension. We will continue to observe. Patient has no indications for cardiac or renal changes. We would recommend that they stop his lisinopril and possibly place him on a calcium channel andrey which is safer for the patient to be traveling. I would like to thank you for allowing us to follow with this patient. Dictated by BEATA Hutchinson for Pancho Byrd MD Face to face encounter, data reviewed, discussed with Viviane Wilson on 07/09/19. I agree with the above assessment and plan of care. cc: BEATA Hutchinson MD [facility]
--- NOTE | 2019-07-09 18:26 | PROGRESS NOTE ---
DATE: 07/09/2019 INTERVAL HISTORY: Patient is symptomatically much improved. Denying any myalgias. REVIEW OF SYSTEMS: Twelve point review of systems negative except as per interval history. LABS: Sodium 127, potassium 2.9, BUN 86, creatinine 2.9. CK 2,140 on last check. VITAL SIGNS: T-max 99.3 degrees, pulse 67, respirations 18, blood pressure 143/71, O2 saturation 100% on room air. PHYSICAL EXAMINATION: General: No acute distress. Vital signs: As above. HEENT: Normocephalic, atraumatic. Cardiovascular: Regular rate and rhythm. No murmurs noted. Pulmonary: Clear to auscultation bilaterally. No wheezing, rales, or rhonchi. Abdomen: Soft, nontender, nondistended. Bowel sounds positive. Extremities: Peripheral pulses intact. No clubbing, cyanosis, or edema. Neurologic: Cranial nerves grossly intact. No focal deficits identified. Psychiatric: Normal mood and affect. Awake, alert, oriented x3. ASSESSMENT AND PLAN: 1. Acute kidney injury. Patient with initial creatinine 4.4. The patient appears to have numerous acute kidney injuries in the past. Difficult to assess exact baseline, but has had a few creatinine as low as 0.9 or 1.0, so appears to have a relatively normal baseline. Has improved significantly today. Could be related to rhabdomyolysis, but I would generally expect a significantly higher CK with rhabdomyolysis significant enough to cause kidney failure. Nephrology is on board and we will see if they have any other thoughts. 2. Severe hyponatremia. The patient did report some vomiting but did not really sound like significant enough to cause this degree of hyponatremia. Urine osmolality is increased, suggesting possible SIADH. The patient was on escitalopram at home which could have been causative. Significantly improved with holding that and fluid restricting patient. Again, nephrology on board. We will see if they have further thoughts. 3. Hyponatremia. Patient on replacement. We will monitor. 4. Possible rhabdomyolysis. Patient with CK elevated to about 2,000 on admission. Not as high as I would usually expect with significant rhabdomyolysis but could be. We will monitor. 5. Elevated liver function tests. Likely due to the same process that brought him in, but will repeat in the morning and consider hepatitis panel and ultrasound if it is not improving. 6. Hypertension. Holding home lisinopril currently given kidney failure. Blood pressure only mildly elevated. 7. Hyperlipidemia. Holding home statin given liver issues. 8. Gastroesophageal reflux disease. Continue PPI. 9. Urine drug screen positive for THC. Patient counseled on illicit substance avoidance. ESTHER
[2019-07-09 20:51] LABS: URINE SOURCE VOIDED
[2019-07-09 21:04] LABS: BILIRUBIN URINE NEGATIVE (NEGATIVE); BLOOD URINE TRACE (NEGATIVE); COLOR YELLOW; GLUCOSE URINE 100 mg/dL (NEGATIVE); KETONE URINE NEGATIVE (NEGATIVE); LEUKOCYTES URINE NEGATIVE (NEGATIVE); NITRITE URINE NEGATIVE (NEGATIVE); PROTEIN URINE TRACE mg/dL (NEGATIVE); SP GRAVITY URINE 1.012; TURBIDITY URINE CLEAR (CLEAR); UR EPITHELIAL CELLS <10 /HPF (<10); URINE BACTERIA NEGATIVE /HPF; URINE RBC <10 /HPF (<10); URINE WBC <10 /HPF (<10); UROBILINOGEN URINE NORMAL (NORMAL)
[2019-07-10] MEDS: PRILOSEC PO SCH ×2 (05:42→06:19)
[2019-07-10] MEDS: NS 1,000 ML IV SCH (05:42)
[2019-07-10 06:47] LABS: EOS# 0.22 X1000 (0.0-0.7); EOS% 3.2 % (0.0-10.0); HEMATOCRIT 40.2 % (42.0-52.0); HEMOGLOBIN 13.7 g/dL (14.0-18.0); IMM GRAN# 0.03 X1000 (0.0-0.04); IMM GRAN% 0.4 % (0.0-0.5); LYMPH# 1.59 X1000 (1.2-3.4); LYMPH% 23.2 % (20.5-51.1); MCH 31.5 PG (27-31); MCHC 34.1 g/dL (33-37); MCV 92.4 FL (81-99); MONO# 0.73 X1000 (0.11-0.59); MONO% 10.7 % (1.7-9.3); MPV 10.2 FL (7.4-10.4); NEUT# 4.28 X1000 (1.4-6.5); NEUT% 62.5 % (42.2-75.2); PLT 159 X1000 (130-400); RBC 4.35 XMIL (4.7-6.1); RDW 12.7 % (11.5-14.5); WBC 6.85 X1000 (4.8-10.8)
[2019-07-10] MEDS: HUMULIN R SUBQ SCH ×2 (06:58→11:29)
[2019-07-10 07:08] LABS: LYMPHS 12 % (21-51); MONO 12 % (1-9); SEGS 76 % (42-75)
[2019-07-10 07:14] LABS: ALBUMIN 3.5 g/dL (3.5-5.0); CALCIUM 8.5 mg/dL (8.8-10.2); CREATININE 2.1 mg/dL (0.7-1.2); PHOSPHORUS 1.7 mg/dL (2.7-4.5); POTASSIUM 3.3 mmol/L (3.5-5.1)
[2019-07-10 07:39] LABS: ALB/GLOB RATIO 1.5; ALBUMIN 3.3 g/dL (3.5-5.0); DIRECT BILIRUBIN 0.1 mg/dL (0.00-0.20); TOTAL BILIRUBIN 0.7 mg/dL (0.20-1.00); TOTAL PROTEIN 5.5 g/dL (6.3-8.3)
[2019-07-10 07:52] LABS: CK INDEX 0.6 (0.0-2.5); CK-MB 2.8 ng/mL (0.0-5.0)
[2019-07-10] MEDS: NORVASC PO SCH (10:16)
[2019-07-10] MEDS: KLOR-CON PO SCH (10:16)
[2019-07-10 11:52] VITALS: BP 137/82
[2019-07-10] MEDS ORDERED: FLU VACCINE IM ONE (12:35)
[2019-07-10 15:18] LABS: HEPATITIS PROFILE ACUTE SEE COMMENTS
--- NOTE | 2019-07-10 18:09 | DISCHARGE SUMMARY ---
ADMISSION DATE: 07/08/2019 DISCHARGE DATE: 07/10/2019 CONSULTATIONS: Nephrology, Dr. Byrd. PERTINENT STUDIES: Chest x-ray, no acute process. Abdominal ultrasound with likely medical renal disease but no acute findings. CT head unremarkable. Initial creatinine 4.4, discharge creatinine 2.1. Initial sodium 119, discharge, sodium 130. Initial CK 2140, discharge CK 450. Urine drug screen positive for cannabinoids. Hepatitis screen negative. Initial bilirubin 1.44, AST 91, ALT 52. Discharge, bilirubin 0.7, AST 44, ALT 38. DISCHARGE DIAGNOSES: 1. Severe hyponatremia. 2. Acute kidney injury. 3. Possible rhabdomyolysis. 4. Elevated liver function tests. 5. Hypertension. 6. Hyperlipidemia. 7. Gastroesophageal reflux disease. 8. Marijuana use. HOSPITAL COURSE: The patient presented initially with nausea, vomiting and abdominal pain. On initial evaluation, the patient was found to have severe hyponatremia with a sodium of 119, acute kidney injury with a creatinine of 4.4, close to normal baseline, and elevated CK at 2140. The patient was treated initially with IV fluids, but after initial fluid resuscitation and Nephrology consultation, he was fluid restricted. His sodium improved at an appropriate rate and was up to 130 at the time of discharge. Creatinine also continue to improve to 2.9 and then to 2.1 on the day of discharge. CK similarly trended down towards normal but was still a little elevated at discharge. The patient's symptoms improved rapidly with improvement in his sodium. On the day of discharge, the patient began becoming irritated at continuing to be in the hospital. I discussed with him that while his sodium was almost entirely better and that his kidney function was significantly improved, but that we still wanted to monitor his kidney function and CK and to further replete his potassium, which had been consistently around 3 since shortly after his admission. Despite this, the patient remained adamant in his desire to leave regardless of our recommendations. After discussion during which patient again remained adamant about this, his discharge was facilitated. Discussed with patient that while we recommended he stay, that he had had some improvement. He was encouraged to return to care if any further nausea, vomiting, dizziness, or other significant symptoms developed. He was encouraged to follow up with Nephrology and his PCP. The patient was advised to remain off of his home escitalopram, as it was suspected that may have caused SIADH which may have caused his severe drop in sodium. His urine osmolality was 393 on admission, which would tend to support that. DISCHARGE VITALS: Temperature 98.5, pulse 66, respirations 18, blood pressure 137/82, O2 saturation 100% on room air next. DISCHARGE DIET: Regular. DISPOSITION: The patient insisted on being discharged despite recommendations that he stay. It is recommended that the patient follow up with Nephrology and his PCP. Patient was instructed to remain off the escitalopram and to return to care if any of his symptoms reoccur. DISCHARGE MEDICATIONS: Simvastatin 5 mg p.o. at bedtime, Norvasc 2.5 mg p.o. daily, docusate 100 mg daily as needed. TIME SPENT: Greater than 30 minutes spent counseling patient and arranging discharge.
== END 2019-07-10 12:55 | disposition home or self-care (01) ==
LOC: SUPCPDRO → ED 21:38 → 4N 07-08 06:07 → SUATTDRO 07-08 06:07
PROVIDERS: ATTEND Internal Medicine